=== PATIENT | female | born 1970 | race Caucasian/White ===

== ENCOUNTER 2019-09-20 14:16 | Outpatient (CLI) | payer OTHER, SELFPAY ==
--- NOTE | ~2019-09-20 | MM_ITS ---
EXAMINATION: MM screening christopher BI w alanis HISTORY: Screening mammogram, family history of breast cancer in her mother. TECHNIQUE: Craniocaudal and mediolateral oblique 3-D tomosynthesis images were obtained and synthetic 2-D images were generated. CAD analysis was submitted and interpreted. COMPARISON: 09/18/2018, 10/28/2017, 11/07/2016 BREAST PARENCHYMAL COMPOSITION: The breasts are heterogeneously dense, which may obscure small masses . FINDINGS: There is no evidence of suspicious mass, calcification, or architectural distortion to sugg est malignancy in either breast. There has been no suspicious interval change. IMPRESSION: 1. No mammographic evidence of malignancy. 2. Recommend routine screening mammography in one year. BI-RADS Category 1: Negative Reviewed, dictated and finalized at location A.
== END 2019-09-20 14:17 | disposition home or self-care (01) ==
PROVIDERS: PCP Family Medicine; Visit Provider Nurse Practitioner Obstetrics & Gynecology
DX: Z12.31 Encounter for screening mammogram for malignant neoplasm of breast (principal)
CPT/HCPCS: 77063; 77067

== ENCOUNTER 2020-09-21 14:15 | Outpatient (CLI) | payer OTHER, SELFPAY ==
--- NOTE | ~2020-09-21 | MM_ITS ---
EXAMINATION: MM screening christopher BI w alanis HISTORY: Screening mammogram, family history of breast cancer in her mother. TECHNIQUE: Craniocaudal and mediolateral oblique 3-D tomosynthesis images were obtained and synthetic 2-D images were generated. CAD analysis was submitted and interpreted. COMPARISON: 09/20/2019, 09/18/2018, 10/28/2017, 11/07/2016 BREAST PARENCHYMAL COMPOSITION: The breasts are heterogeneously dense, which may obscure small masses . FINDINGS: There is no evidence of suspicious mass, calcification, or architectural distortion to sugg est malignancy in either breast. There has been no suspicious interval change. IMPRESSION: 1. No mammographic evidence of malignancy. 2. Recommend routine screening mammography in one year. BI-RADS Category 1: Negative Reviewed, dictated and finalized at location A.
== END 2020-09-21 14:16 | disposition home or self-care (01) ==
LOC: ANHIMG 14:17
PROVIDERS: PCP Family Medicine; Visit Provider Nurse Practitioner Obstetrics & Gynecology
DX: Z12.31 Encounter for screening mammogram for malignant neoplasm of breast (principal)
CPT/HCPCS: 77063; 77067

== ENCOUNTER 2021-10-19 08:21 | Outpatient (CLI) | payer OTHER, SELFPAY ==
--- NOTE | ~2021-10-19 | MM_ITS ---
EXAMINATION: MM screening christopher BI w alanis HISTORY: Screening mammogram, family history of breast cancer in her mother. TECHNIQUE: Craniocaudal and mediolateral oblique 3-D tomosynthesis images were obtained and synthetic 2-D images were generated. CAD analysis was submitted and interpreted. COMPARISON: 09/21/2020, 09/20/2019, 09/18/2018 BREAST PARENCHYMAL COMPOSITION: The breasts are heterogeneously dense, which may obscure small masses . FINDINGS: RIGHT BREAST: There is no suspicious mass, calcification, or architectural distortion to suggest eve gnancy. There has been no significant interval change. LEFT BREAST: There is a possible mass in the middle third of the slightly inner breast. IMPRESSION: 1. Possible left breast mass. 2. Additional mammographic views and possible breast ultrasound are recommended. BI-RADS Category 0: Incomplete: Needs additional imaging evaluation. Reviewed, dictated and finalized at location A. IMPRESSION: 1. Possible left breast mass. 2. Additional mammographic views and possible breast ultrasound are recommended . BI-RADS Category 0: Incomplete: Needs additional imaging evaluation.
== END 2021-10-19 08:22 | disposition home or self-care (01) ==
LOC: ANHIMG 08:25
PROVIDERS: PCP Family Medicine; Visit Provider Nurse Practitioner Obstetrics & Gynecology
DX: Z12.31 Encounter for screening mammogram for malignant neoplasm of breast (principal); R92.8 Other abnormal and inconclusive findings on diagnostic imaging of breast
CPT/HCPCS: 77063; 77067

== ENCOUNTER 2021-11-02 12:48 | Outpatient (CLI) | payer OTHER, SELFPAY ==
--- NOTE | ~2021-11-02 | MM_ITS ---
EXAMINATION: MM diagnostic christopher LT w alanis HISTORY: Possible left breast mass in middle third of slightly inner breast reported on 10/19/2021 scr eening mammogram TECHNIQUE: Additional full field ML and spot ML, MLO and CC 3-D tomosynthesis images of the left albert st were performed and synthetic 2-D images were generated. Rolled medial and rolled lateral craniocau marla views of left breast. CAD analysis was submitted and interpreted. COMPARISON: 10/19/2021 bilateral screening mammogram FINDINGS: No suspicious mass or architectural distortion, malignant calcifications, skin thickening o r retraction. The suggested breast mass on the craniocaudal view of 10/20/1999 22,022 is not confirmed on coned comp ression CC view or rolled medial or lateral CC views or other images. IMPRESSION: 1. No mammographic evidence of malignancy 2. Routine mammographic screening is recommended BI-RADS Category 1: Negative Reviewed, dictated and finalized at location B.
== END 2021-11-02 12:49 | disposition home or self-care (01) ==
LOC: ANHIMG 12:49
PROVIDERS: PCP Family Medicine; Visit Provider Nurse Practitioner Obstetrics & Gynecology
DX: R92.8 Other abnormal and inconclusive findings on diagnostic imaging of breast (principal)
CPT/HCPCS: 77061; 77065; G0279

== ENCOUNTER 2022-11-12 08:32 | Outpatient (CLI) | payer OTHER, SELFPAY ==
--- NOTE | ~2022-11-12 | MM_ITS ---
EXAMINATION: MM screening christopher BI w alanis HISTORY: Screening mammogram, family history of breast cancer in her mother. TECHNIQUE: Craniocaudal and mediolateral oblique 3-D tomosynthesis images were obtained and synthetic 2-D images were generated. CAD analysis was submitted and interpreted. COMPARISON: 11/02/2021, 10/19/2021, 09/21/2020, 09/20/2019 BREAST PARENCHYMAL COMPOSITION: The breasts are heterogeneously dense, which may obscure small masses . FINDINGS: No suspicious mass, calcification, or architectural distortion are identified in either estrellita ast to suggest malignancy. There has been no suspicious interval change. IMPRESSION: 1. No mammographic evidence of malignancy. 2. Recommend routine screening mammography in one year. BI-RADS Category 1: Negative Reviewed, dictated and finalized at location A.
== END 2022-11-12 08:33 | disposition home or self-care (01) ==
LOC: ANHIMG 08:33
PROVIDERS: PCP Family Medicine; Visit Provider Nurse Practitioner Obstetrics & Gynecology
DX: Z12.31 Encounter for screening mammogram for malignant neoplasm of breast (principal)
CPT/HCPCS: 77063; 77067

== ENCOUNTER 2023-05-27 06:56 | Emergency (ER) | payer OTHER, SELFPAY ==
[2023-05-27 07:00] VITALS: BP 144/91; PULSE 98; RESP 14; TEMP 36.3; O2SAT 98
--- NOTE | 2023-05-27 07:49 | PC.NURSE ---
pt LWBS, Feeling better, will go somewhere else
== END 2023-05-27 08:10 | disposition left against medical advice (07) ==
LOC: ANHED 07:54
PROVIDERS: PCP Family Medicine
DX: R10.9 Unspecified abdominal pain (principal)
CPT/HCPCS: 99199

== ENCOUNTER 2023-05-27 08:14 | Emergency (ER) | payer OTHER, SELFPAY ==
[2023-05-27 08:22] VITALS: BP 135/87; PULSE 89; RESP 16; TEMP 36.8; O2SAT 98
--- NOTE | 2023-05-27 09:14 | ED.GENADULT ---
HPI - General Adult General Chief complaint: Nausea/Vomiting/Diarrhea Stated complaint: Diarrhea, Food Poisoning Source: patient, RN notes reviewed and old records reviewed Mode of arrival: ambulatory Limitations: no limitations History of Present Illness HPI narrative: 52-year-old female presents to [facility] with complaints lower abdominal cramping, diarrhea, nausea, lightheadedness, and pink mucus in stool this started yesterday after eating out. Patient worried she may have gotten food poisoning. Patient denies any other symptoms. Related Data Home Medications Medication Instructions Recorded Confirmed dalfampridine 10 mg 10 mg PO Q12H 11/26/22 05/27/23 tablet,extended release,12 hr (Ampyra) ocrelizumab 30 mg/mL intravenous 300 mg IV [id number] 11/26/22 05/27/23 solution (Ocrevus) Allergies Allergy/AdvReac Type Severity Reaction Status Date / Time codeine Allergy Unknown syncopal Verified 05/27/23 08:24 episode Review of Systems Constitutional: Constitutional: Reports no additional constitutional complaints, Denies body ache(s), Denies chills, Denies fatigue, Denies fever(s) and Denies headache(s) Eyes: Eyes: Reports no additional eye complaints and Denies blurry vision ENT: Reports system reviewed and no additional complaints, except as documented, Denies vertigo, Reports dizziness, Denies ear discharge, Denies otalgia, Denies facial pain, Denies headache(s), Denies nasal congestion, Denies nasal discharge, Denies sinus pain, Denies sinus pressure and Denies sore throat Cardiovascular: Cardiovascular: Reports no additional cardiovascular complaints, Denies chest pain, Denies chest pain at rest, Denies rapid heart rate and Denies dyspnea Respiratory: Respiratory: Reports no additional respiratory complaints, Denies chest congestion, Denies cough, Denies pain on inspiration, Denies pain with cough and Denies dyspnea Gastrointestinal: Gastrointestinal: Reports abdominal pain, Reports diarrhea, Reports nausea and Denies vomiting Integumentary/Breasts: Skin/Breast: Denies rash Neurologic: Reports system reviewed and no additional complaints, except as documented, Denies vertigo, Denies dizziness and Denies headache(s) Endocrine: Endocrine: Denies fatigue [facility] Past Medical History Medical History BMI 25.0-25.9,adult Multiple sclerosis Family History Family History Father Heart disease History of open heart surgery Hypertension Mother Breast cancer Memory change Sibling No problems noted. 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 There is no relevant family history pertinent to the patient complaint. Exam Const: General: cooperative, healthy appearing, no acute distress and well nourished Nutritional Appearance: well nourished Orientation/consciousness: patient oriented x3 Limitations: no limitations HENMT: Head: normal to inspection and normocephalic Face/Nose/Sinus: normal facial exam Face and sinus: normal facial exam Mouth: Yes Normal oral and palatal mucosa present, Yes oropharynx normal and Yes moist mucous membranes Throat: posterior oropharynx normal, tonsils normal, uvula midline and no uvular edema Eyes: General: appearance normal, both eyes and all related structures Sclera: sclerae normal Pupils: Equal, round and reactive pupi
== END 2023-05-27 09:30 | disposition home or self-care (01) ==
PROVIDERS: Emergency Provider Registered Nurse; PCP Family Medicine
DX: K52.9 Noninfective gastroenteritis and colitis, unspecified (principal); G35 Multiple sclerosis
CPT/HCPCS: 99213; G0463

== ENCOUNTER 2023-10-27 12:07 | Outpatient (CLI) | payer OTHER, SELFPAY ==
--- NOTE | ~2023-10-27 | DEXA_ITS ---
Bone Density Report Name: CHAVA HUERTA Age: 53 Sex: Female Ethnicity: White Date of : 1970 Indication: postmenopausal; screening for osteoporosis; history of glucocorticoids; hysterectomy; Referring Provider: JULIANNA, CATIE Resendiz Study: Bone densitometry was performed. Exam Date: October 27, 2023 Accession number: [id number] Bone Density: Region BMD T-score Z-score Classification AP Spine(L1-L4) 0.924 -1.1 0.0 Osteopenia Femoral Neck (Left) 0.638 -1.9 -0.8 Osteopenia Total Hip (Left) 0.835 -0.9 -0.2 Normal Femoral Neck (Right) 0.599 -2.3 -1.2 Osteopenia Total Hip (Right) 0.737 -1.7 -1.0 Osteopenia Total Hip Mean 0.786 -1.3 -0.6 Osteopenia World Health Organization criteria for BMD impression classify patients as: Normal (T-score at or above -1.0), Osteopenia (T-score between -1.0 and -2.5), or Osteoporosis (T-score at or below -2.5). 10-year Fracture Risk(1): Major Osteoporotic Fracture 14% Hip Fracture 2.3% Reported Risk Factors: [place] (), Neck BMD=0.599, BMI=26.4, glucocorticoids (1) FRAX(R) Version 3.08. Fracture probability calculated for an untreated patient. Fracture probability may be lower if the patient has received treatment. Clinical Information Provided by Patient: Has taken Glucocorticoids Has used the following medications: Vitamin D Has the following medical conditions: Hysterectomy Patient maximum height was 64.0 Menopause Age: 37 Drinks caffeinated beverages Onset of menses at age 9 Number of children 0 Impression: The patient has low bone mass, based on the Right Femoral Neck T-score. The patient has an estimated ten-year risk of hip fracture of 2.3% and an estimated ten-year risk of major fracture of 14%, based on the WHO FRAX algorithm. The patient has risk factors, including: history of glucocorticoid therapy. Discussion: BONE DENSITY IS LOW AT ONE OR MORE SKELETAL SITES. This patient's lowest T-score is low at one or more skeletal sites. It meets the World Health Organization's (WHO) criteria for ?low bone mass? (T-score between -1.0 and -2.5). The patient's 10-year risk of fracture as calculated by FRAX is less than the threshold where pharmacological therapy is recommended by the National Osteoporosis Foundation (NOF). However, all treatment decisions require clinical judgment and consideration of individual patient factors, including patient preferences, comorbidities, previous drug use, risk factors not captured in the FRAX model (e.g., frailty, falls, vitamin D deficiency, increased bone turnover, interval significant decline in bone density) and possible under or overestimation of fracture risk by FRAX. The patient should follow a healthful lifestyle (good nutrition with adequate calcium and vitamin D, and appropriate weight-bearing exerci
== END 2023-10-27 12:08 | disposition home or self-care (01) ==
PROVIDERS: PCP Family Medicine; Visit Provider Nurse Practitioner
DX: Z13.820 Encounter for screening for osteoporosis (principal); Z78.0 Asymptomatic menopausal state; M85.852 Other specified disorders of bone density and structure, left thigh; M85.851 Other specified disorders of bone density and structure, right thigh; M85.88 Other specified disorders of bone density and structure, other site
CPT/HCPCS: 77080

== ENCOUNTER 2023-12-04 16:22 | Outpatient (CLI) | payer OTHER, SELFPAY ==
--- NOTE | ~2023-12-04 | MM_ITS ---
EXAMINATION: MM screening christopher BI w alanis HISTORY: Screening TECHNIQUE: Craniocaudal and mediolateral oblique 3-D tomosynthesis images were obtained and synthetic 2-D images were generated. CAD analysis was submitted and interpreted. COMPARISON: Comparison to multiple prior studies sequentially, with oldest reviewed study dated 09/18. BREAST PARENCHYMAL COMPOSITION: Not dense: There are scattered areas of fibroglandular density... FINDINGS: There is no evidence of suspicious mass, calcification, or architectural distortion to sugg est malignancy in either breast. There has been no suspicious interval change. IMPRESSION: 1. No mammographic evidence of malignancy. 2. Recommend routine screening mammography in one year. BI-RADS Category 1: Negative Reviewed, dictated and finalized at location B.
== END 2023-12-04 16:23 | disposition home or self-care (01) ==
PROVIDERS: PCP Family Medicine; Visit Provider Nurse Practitioner Obstetrics & Gynecology
DX: Z12.31 Encounter for screening mammogram for malignant neoplasm of breast (principal)
CPT/HCPCS: 77063; 77067

== ENCOUNTER 2024-05-11 12:39 | Emergency (ER) | payer OTHER, SELFPAY ==
--- OUTSIDE RECORDS SUMMARY | 2024-05-11 12:42 | XMS_ITS | Clinical Summary ---
Author Organization [facility] Address [address] [place] [address] Phone Care Team Providers Care Import Clerk Name Role Phone Jose Alberto Lima MD Primary Care Provider [phone] Allergies Active Allergy Reactions Criticality Noted Date Comments Codeine Unknown 09/29/2012 Black out, pass out Medications Fish Oil-[place]-3 Fatty Acids (FISH OIL OMEGA 3-6-9) 300-1,000 mg Oral CpDR Take by mouth. Active MULTIVITAMIN ORAL Take by mouth. Active GLUCOSAMINE HCL/CHONDR PALMER A NA (OSTEO BI-FLEX ORAL) Take by mouth. 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 Family History Medical History Relation Name Comments Heart Disease Father High Cholesterol Father Hypertension Father Colon Cancer Neg Hx Relation Name Status Comments Father Social History Tobacco Use Types Packs/Day Years Used Date Smoking Tobacco: Never Alcohol Use Standard Drinks/Week Comments Yes 0 (1 standard drink = 0.6 oz pur e alcohol) occas glass of wine Comments Unknown Sex and Gender Information Value Date Recorded Sex Assigned at Not on file Legal Sex Female 2:57 PM CDT Gender Identity Not on file Sexual Orientation Not on file Occupation Industry Job Start Date Job End Date Not on file Not on file Not on file Not on file Last Filed Vital Signs Vital Sign Reading Time Taken Comments Blood Pressure 132/76 12/14/2013 3:19 PM CDT lef t wrist Pulse 69 12/14/2013 3:19 PM CDT Temperature 37.1 ??C (98.8 ??F) 10/07/2012 4:35 PM CD T Respiratory Rate 18 12/14/2013 3:19 PM CDT Oxygen Saturation 100% 10/07/2012 4:35 PM CDT Inhaled Oxygen Concentration - - Weight 71.7 kg (158 lb) 12/14/2013 3:19 PM CDT Height 162.6 cm (5' 4 ) 12/14/2013 3:19 PM CDT Body Mass Index 27.12 12/14/2013 3:19 PM CDT Plan of Treatment Health Maintenance Due Date Last Done Comments HEPATITIS B VACCINES (1 of 3 - 19+ 3-dose series) 07/05/1987 CERVICAL CANCER SCREENING 1998 BREAST CANCER SCREENING 2008 FIT-DNA Q 3 years 2013 FIT/FOBT Q 1 year 2013 Flex Sig/CT Colonography Q 5 years 2013 INFLUENZA VACCINE (#1) 2023 01/15/2022 COVID-19 Vaccine (3 - 2023-2 5 season) 2023 06/16/2020, 05/19/2020 DTAP/TDAP/TD VACCINES (2 - T d or Tdap) 10/13/2027 10/12/2017 COLORECTAL SCREENING 10/06/2028 10/06/2018, 10/06/2012 Colorectal Cancer Screening 10/06/2028 ZOSTER VACCINE Completed 02/12/2019, 08/03/2018 PNEUMOCOCCAL VACCINE 0-64 YEARS Aged Out No longer eligible b ased on patient's age to complete this topic Insurance BLUE ACCESS/TRUE BLUE PPO [facility] [id number] Advance Directives For more information, please contact: [phone] * Full Code (Latest Code Status on File) Date Activated Date Inactivated Comments 10/07/2012 1:24 PM 10/07/2012 7:21 PM * Full Code Date Activated Date Inactivated Comments 10/07/2012 11:58 AM 10/07/2012 1:24 PM * Full Code Date Activated Date Inactivated Comments 10/06/2012 8:21 AM 10/06/2012 12:54 PM Care Teams Import Clerk Relationship Specialty Start Date End Date Jose Alberto Lima MD [address] [place] [address] PCP - General Family Practice 09/29/12
--- OUTSIDE RECORDS SUMMARY | 2024-05-11 12:43 | XMS_ITS | Data Portability ---
Author Organization [facility] Address [address] [place] [address] Care Team Providers Care Catering Staff Member Name Role Phone SON JAIN Primary Care Provider Assessment Encounter Date Assessment Date Assessment LastModified by Organization Details LastModified Time 09/20/2019 09/20/2019 Annual gynecological exam performed. Patient will come back in a year unless there are new symptoms. [email or web address] Not available 09/20/2019 11:02:03 09/21/2020 09/21/2020 Annual gynecological exam performed. Patient will come back in a year unless there are new symptoms. Not available 09/20/2020 14:15:43 09/24/2021 09/24/2021 Annual gynecological exam performed. Patient will come back in a year unless there are new symptoms. Not available 09/24/2021 11:06:26 09/27/2022 09/27/2022 Annual gynecological exam performed. Patient will come back in a year unless there are new symptoms. Not available 09/27/2022 09:05:03 10/03/2023 10/03/2023 Annual gynecological exam performed. Patient will come back in a year unless there are new symptoms. [email or web address] Not available 10/03/2023 09:23:15 Plan of Treatment Reminders Order Date Submit Date Provider Last Modified By Organization Details Last Modified Time Details Appointments None recorded. Lab CMP, serum or plasma 2019 020 [facility], [address], [place], [address], 0 10:56:37 CBC 2019 020 [facility], [address], [address], 0 10:56:36 lipid panel, serum 2019 020 [facility], [address], [address], 0 10:56:36 TSH, serum or plasma 2019 020 [facility], [address], [address], 0 10:56:37 vitamin D, 25-hydroxy, total, serum 2019 020 [facility], [address], [address], 0 10:56:36 CMP, serum or plasma 2021 022 [facility], [address], [place], [address], 2 16:56:10 CBC w/ auto diff 2021 022 [facility], [address], [place], [address], 2 16:56:10 HbA1c (hemoglobin A1c), blood 2021 022 [facility], [address], [place], [address], 2 16:56:10 vitamin D, 1,25-dihydr oxy, serum 2021 022 [facility], [address], [place], [address], 2 16:56:11 TSH, serum or plasma 2021 022 [facility], [address], [place], [address], 2 16:56:10 lipid panel, serum 2021 022 [facility], [address], [place], [address], 2 16:56:10 CMP, serum or plasma 2022 023 [facility], [address], [place], [address], 3 15:20:34 CBC w/ auto diff 2022 023 [facility], [address], [place], [address], 3 15:20:35 TSH, serum or plasma 2022 023 [facility], [address], [place], [address], 3 15:20:35 HbA1c (hemoglobin A1c), blood 2022 023 [facility], [address], [place], [address], 3 05:01:08 lipid panel, serum 2022 023 [facility], [address], [place], [address], 3 05:01:08 CBC w/ auto diff 2023 024 [facility], [address], [address], 5 05:01:40 lipid panel, serum 2023 024 [facility], [facility] [address], [address], 4 10:16:47 HbA1c (hemoglobin A1c), blood 2023 024 [facility], [facility] [address], [address], 4 10:16:48 TSH, serum or plasma 2023 024 [facility], [facility] [address], [address], 5 05:01:40 vitamin D, 25-hydroxy, total, serum 2023 024 [facility], [facility] [address], [address], 4 10:16:48 CMP, serum or plasma 2023 024 [facility], [facility] [address], [address], 4 10:16:48 Referral None recorded. Procedures None recorded. Surgeries None recorded. Imaging MAMMO, screening, bilateral [address] [facility], [address], [place], [address], 3 13:52:18 DEXA, axial skeleton + vertebral fracture assessment 2023 024 [facility], [address], [place], [address], 4 18:23:00 MAMMO, screening, digital, bilateral 2023 024 [facility], [address], [place], [address], 5 05:01:03 Medication Orders Premarin 0.625 mg/gram vaginal cream 2020 021 [id number], [address] [facility], [place], [place], [id number], 2 11:09:00 Patient TargetsNo targets recorded. Patient InstructionsNo instructions recorded. Reason for Referral None Reported. Results Created Date Observation Date Name Description Value Unit Range Abnormal Flag Note LastModifiedBy Organization Detail LastModifiedTime 09/20/19 20 09/20/2019 MAMMO , scree jesus, bilat eral No observ ation record ed. [address] [facility], [place], [address], 10/04/2019 18:22:23 10/20/19 22 10/19/2021 MAMMO , scree jesus, bilat eral No observ ation record ed. [address] [address], [place], [address], 10/24/2021 23:31:23 11/03/19 22 11/02/2021 imagi ng/di agnos tic resul t No observ ation record ed. [address] [address], [place], [address], 11/06/2021 21:05:24 10/28/19 24 10/27/2023 DEXA, axial skele ton + verte bral fract ure asses sment No observ ation record ed. [address] [address], [place], [address], 10/31/2023 19:53:37 12/04/19 24 12/04/2023 MAMMO , scree jesus, bilat eral No observ ation record ed. [address] [address], [place], [address], 12/08/2023 14:03:10 Result Notes None recorded. Problems Name Problem SNOMED Code Status Onset Date Resolution Date Notes Provider Name and Address Organization Details Recorded Time Screening for malignant neoplasm of rectum Completed 201209/20/2020 Screening for malignant neoplasms of the rectum;Re corded Elsewhere : No Locati on: [facility] So urce: EHR Chron ic: N Practic e ID: 0001 Bill able Time: 08:30:00 AM Sofi [facility] 14:17:58 Specializ ed medical examinati on Completed 201209/20/2020 Gynecolog ical Examinati on;Record ed Elsewhere : No Locati on: [facility] So urce: EHR Chron ic: N Practic e ID: 0001 Bill able Time: 08:30:00 AM Sofi [facility] 14:18:04 Carbuncle of skin and/or subcutane ous tissue [id number] Completed 201209/20/2020 Carbuncle and furuncle of unspecifi ed site;Vince rded Elsewhere : No Locati on: [facility] So urce: EHR Chron ic: N Practic e ID: 0001 Bill able Time: 01:45:00 PM Sofi Kapoor [facility] 14:17:49 Dyspareun ia [id number] Completed 201309/20/2020 Dyspareun ia;Record ed Elsewhere : No Locati on: [facility] So urce: EHR Chron ic: N Practic e ID: 0001 Bill able Time: 04:15:00 PM Sofi [facility] 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 [address] 14:18:[address] Concept Completed 201509/20/2020 Encntr for general adult medical exam w/o abnormal findings; Recorded Elsewhere : No Locati on: [facility] So urce: EHR Chron ic: N Practic e ID: 0001 Bill able Time: 08:30:00 AM Soif Kapoor [facility] 1 14:18:00 External hemorrhoi ds [id number] Completed 201209/20/2020 External hemorrhoi ds without mention of complicat ion;Recor ded Elsewhere : No Locati on: [facility] So urce: EHR Chron ic: Y Practic e ID: 0001 Bill able Time: 08:30:00 AM Sofi Kapoor [facility] 14:17:54 Anal fissure [id number] Completed 201309/20/2020 Anal fissure;R ecorded Elsewhere : No Locati on: [facility] So urce: EHR Chron ic: N Practic e ID: 0001 Bill able Time: 08:30:00 AM Sofi Kapoor [facility] 14:17:47 Adult health examinati on Completed 201309/20/2020 ROUTINE MEDICAL EXAM;Vince rded Elsewhere : No Locati on: [facility] So urce: EHR Chron ic: N Practic e ID: 0001 Bill able Time: 08:30:00 AM Sofi Kapoor [facility] 1 14:17:45 Cyst of ovary [id number] Completed 201209/20/2020 Other and unspecifi ed ovarian cyst;Vince rded Elsewhere : No Locati on: [facility] So urce: EHR Chron ic: N Practic e ID: 0001 Bill able Time: 08:15:00 AM Sofi Kapoor [facility] 14:17:51 Screening for malignant neoplasm of cervix Completed 201209/20/2020 Screening for malignant neoplasms of the cervix;Re corded Elsewhere : No Locati on: [facility] So urce: EHR Chron ic: N Practic e ID: 0001 Bill able Time: 08:30:00 AM Sofi [facility] 14:17:55 Screening for malignant neoplasm of colon Completed 201009/20/2020 Special screening for malignant neoplasms , colon;Pra ctice ID: 0001 Sofi [facility] 14:17:57 Problem Notes None recorded. Procedures Surgical History Date Name Laterality Status Provider Name and Address Organization Details Recorded Time 10/20/19 23 Date of Last Mammogram completed Shona Jose [facility] 10/03/2023 09:26:32 09/20/19 20 completed [facility] 09/20/2020 14:19:57 10/07/19 19 completed [facility] 09/21/2020 09:48:07 10/07/19 19 Date of Last Colonoscopy completed [facility] 09/21/2020 09:48:07 09/15/19 19 Date of Last Pap Smear completed [facility] 09/20/2020 14:19:02 procedure on hand completed [facility] 09/20/2019 11:04:07 Total Hysterectomy completed [facility] 09/20/2019 11:04:12 Laparoscopy completed [facility] 09/20/2019 11:04:17 repair of anal fistula completed [facility] 09/20/2019 11:04:29 Imaging Results Imaging Date Name Status [facility]Modified by [facility] Details LastModified Time 09/20/2019 MAMMO, screening, bilateral completed [facility] [address] [place] [address] [address], [place], [address], 10/04/2019 18:22:23 10/19/2021 MAMMO, screening, bilateral completed [address], [place], [address], 10/24/2021 23:31:23 11/02/2021 imaging/diagnos tic result completed [address], [place], [address], 11/06/2021 21:05:24 10/27/2023 DEXA, axial skeleton + vertebral fracture assessment completed [address] [facility], [place], [address], 10/31/2023 19:53:37 12/04/2023 MAMMO, screening, bilateral completed [address] [facility], [place], [address], 12/08/2023 14:03:10 Procedure Notes None recorded. Medical Equipment None Reported. Allergies Allergen ID Allergen Name Allergen Category Reaction Reaction Severity Criticality Documentation Date Start Date Code Code System Note Provider Name and Address Organization Details Recorded Time 988 codeine medicatio n Not available Not available Not available 09/20/2019 2670 RxNorm La [facility] [place] [facility] 0 11:02:32 Medications Name Sig Start Date Stop Date Status Note LastModified by Organization Details LastModified Time amoxicill in 500 mg capsule TAKE 2 CAPSULES BY MOUTH EVERY DAY FOR 10 DAYS 09/20 completed Not Available Not Available Not Available azelastin e 0.05 % eye drops INSTILL 1 DROP INTO BOTH EYES TWICE A DAY NEEDED FOR EYE IRRITATI ON 10/02 completed Not Available Not Available Not Available prednison e 10 mg tablet 10/02 completed Not Available Not Available Not Available clobetaso l 0.05 % topical cream apply by topical route 2 times every day a thin layer to the affected area(s) 11/03 completed Prescrib ed Elsewher e: No Locat ion: Genaro hayden [facility] odify By: jony Hayden ncounter DateTime : 11/03/19 14 08:30:00 AM Not Available Not Available Not Available amoxicill in 500 mg tablet TAKE 1 TABLET BY MOUTH EVERY 12 HOURS FOR 7 DAYS 09/20 completed Not Available Not Available Not Available Metrogel Vaginal 0.75 % (37.5 mg/5 gram) insert 1 applicat orful (37.5MG) by vaginal route every day at bedtime 11/02 completed Prescrib ed Elsewher e: No Locat ion: [facility] By: catalino cerda DateTime : 11/05/19 13 08:31:42 AM Not Available Not Available Not Available dicyclomi ne 20 mg tablet TAKE 1 TABLET BY MOUTH THREE TIMES DAILY NEEDED FOR ABDOMINA L PAIN 10/02 completed Not Available Not Available Not Available benzonata te 100 mg capsule TAKE 1 CAPSULE BY MOUTH THREE TIMES DAILY FOR 10 DAYS NEEDED FOR COUGH 09/27 completed Not Available Not Available Not Available Cipro 500 mg tablet take 1 tablet (500MG) by oral route every 12 hours 10/28 completed Prescrib ed Elsewher e: No Locat ion: Ayla jackelyn [facility]ify By: lakisha vargasuntmani DateTime : 08/25/19 13 04:15:02 PM Not Available Not Available Not Available Glucosami ne 500 mg tablet 11/03 completed Prescrib ed Elsewher e: Yes Loca tion: Genaro hayden [facility]ify By: jony Hayden ncounter DateTime : 10/26/19 12 11:11:10 AM Not Available Not Available Not Available Anusol-HC 25 mg rectal supposito ry insert 1 supposit ory (25MG) by rectal route 2 times every day for 2 weeks 07/13 completed Prescrib ed Elsewher e: No Locat ion: Genaro hayden [facility] odify By: cmedical Encount er DateTime : 07/01/19 13 09:46:01 AM Not Available Not Available Not Available Vitamin D2 1,250 mcg (50,000 unit) capsule take 1 capsule by oral route every week 09/27 completed Prescrib ed Elsewher e: Yes Loca tion: Genaro hayden [facility]ify By: meravt pena DateTime : 09/15/19 19 08:30:00 AM Not Available Not Available Not Available ondansetr on 4 mg disintegr ating tablet DISSOLVE 1 TABLET ON THE TONGUE EVERY 6 HOURS NEEDED FOR NAUSEA OR VOMITING 10/02 completed Not Available Not Available Not Available neomycin 3.5 mg-polymy mindy 10,000 unit-hydr ocort 10 mg/mL eye drop,susp INSTILL 1 DROP IN AFFECTED EYE(S) FOUR TIMES DAILY FOR UP TO 5 DAYS 10/02 completed Not Available Not Available Not Available diazepam 5 mg tablet TAKE 1 TABLET BY MOUTH 1 HOUR BEFORE MRI. MAY REPEAT 30 MINUTES BEFORE EXAM 10/02 completed Not Available Not Available Not Available Bactrim DS 800 mg-160 mg tablet take 1 tablet by oral route every 12 hours 10/28 completed Prescrib ed Elsewher e: No Locat ion: [facility] odify By: lakisha vargasuntmani DateTime : 09/02/19 13 11:11:35 AM Not Available Not Available Not Available Vitamins and Minerals tablet active Prescrib ed Elsewher e: Yes Loca tion: [facility]ify By: catalino cerda DateTime : 10/28/19 12 01:00:00 PM Not Available Not Available Not Available Premarin 0.625 mg/gram vaginal cream insert (1G) by vaginal route daily x 14 days; then, use twice weekly for maintena nce. 09/24 completed Not Available Not Available Not Available Fish Oil 09/20 completed Not Available Not Available Not Available Metamucil active Not Available Not Nathalia ilable Not Available Vitamins and Minerals 09/20 completed Not Available Not Available Not Available Keflex 750 mg capsule take 1 capsule (750MG) by oral route 2 times every day 10/28 completed Prescrib ed Elsewher e: No Locat ion: [facility] odify By: lakisha pena DateTime : 08/05/19 13 05:00:00 PM Not Available Not Available Not Available dalfampri dine ER 10 mg tablet,ex tended release,1 2 hr take 1 tablet by oral route 2 times every day 10/02 completed Not Available Not Available Not Available Ampyra 09/20 completed Not Available Not Available Not Available Probiotic active Not Available Not Nathalia ilable Not Available Fish Oil 100 mg-160 mg-1,000 mg capsule active Prescrib ed Elsewher e: Yes Loca tion: [facility] odify By: catalino cerda DateTime : 10/28/19 12 01:00:00 PM Not Available Not Available Not Available Vitamin D2 09/24 completed Not Available Not Available Not Available Anusol-HC 2.5 % topical cream with perineal applicato r apply by topical route 2 times every day to the affected area(s) 08/04 completed Prescrib ed Elsewher e: No Locat ion: [facility] odify By: catalino cerda DateTime : 06/26/19 13 08:30:00 AM Not Available Not Available Not Available Ocrevus 30 mg/mL intraveno us solution infuse by intraven ous route every 6 months over at least (maximum infusion rate 200 mL/hr) active Prescrib ed Elsewher e: Yes Loca tion: [facility] odify By: joshua Hayden ncounter DateTime : 10/29/19 18 08:30:00 AM Not Available Not Available Not Available Ocrevus 09/20 completed Not Available Not Available Not Available BinaxNOW COVID-19 Ag Self Test kit Use as Directed on the Package 09/27 completed Not Available Not Available Not Available Vitals Date Recorded Body height Body mass index (BMI) Body weight Provider Name and Address Organization Details Last Updated DateTime 09/21/2020 162.56 cm 26.4 kg/m2 13566.22 tressa Kapoor [place] - [place] [facility] 09/21/2020 09:47:49 Date Recorded Systolic blood pressure Diastolic blood pressure Provider Name and Address Organization Details Last Updated DateTime 09/21/2020 132 mm[Hg] 78 mm[Hg] Lexi Friederich, [facility] [address], [place], [address], [facility] 09/21/2020 10:10:55 Date Recorded Body height Body mass index (BMI) Body weight Systolic blood pressure Diastolic blood pressure Provider Name and Address Organization Details Last Updated DateTime 09/20/2019 1950.72 cm 0.2 kg/m2 21157.45 g 127 mm[Hg] 78 mm[Hg] La Lamb [facility] 11:07:53 Date Recorded Body height Body mass index (BMI) Body weight Provider Name and Address Organization Details Last Updated DateTime 09/24/2021 160.02 cm 26.2 kg/m2 06092.67 g Sofi Kapoor [facility] 09/24/2021 11:08:07 Date Recorded Systolic blood pressure Diastolic blood pressure Provider Name and Address Organization Details Last Updated DateTime 09/24/2021 122 mm[Hg] 74 mm[Hg] Lexi Krishnamurthy, [facility] [address], [place], [address], [facility] 09/24/2021 11:26:08 Date Recorded Body height Body mass index (BMI) Body weight Provider Name and Address Organization Details Last Updated DateTime 09/27/2022 160.02 cm 27.3 kg/m2 78393.22 g Symone Eugene [facility] 09/27/2022 09:05:20 Date Recorded Systolic blood pressure Diastolic blood pressure Provider Name and Address Organization Details Last Updated DateTime 09/27/2022 122 mm[Hg] 80 mm[Hg] Lexi Krishnamur[facility] [address], [place], [address], [facility] 09/27/2022 09:27:03 Date Recorded Body height Body mass index (BMI) Body weight Systolic blood pressure Diastolic blood pressure Provider Name and Address Organization Details Last Updated DateTime 10/03/2023 160.02 cm 26.7 kg/m2 08013.45 g 146 mm[Hg] 82 mm[Hg] Shona Jose [facility] 09:25:42 Social History Question Answer Notes LastModified by Organizat ion Details LastModified Time Tobacco Smoking Status Never Smoker Symone Eugene swati, [facility] 09/27/2022 09:05:39 What Is Your Level Of Alcohol Consumption? Occasional Information not available 09/21/2020 Are You Blind Or Do You Have Difficulty Seeing? No Information not available 09/24/2021 What Is Your Level Of Caffeine Consumption? Moderate Information not available 09/21/2020 How Much Tobacco Do You Chew? None Information not available 09/27/2022 In The 14 Days Before Symptom Onset, Have You Had Close Contact With A Laboratory-confir med COVID-19 While That Case Was Ill? No Information not available 09/27/2022 In The 14 Days Before Symptom Onset, Have You Had Close Contact With A Person Who Is Under Investigation For COVID-19 While That Person Was Ill? No Information not available 09/27/2022 Have You Been To An Area Known To Be High Risk For COVID-19? No Information not available 09/27/2022 Are You Deaf Or Do You Have Serious Difficulty Hearing? No Information not available 09/24/2021 What Type Of Diet Are You Following? REGULAR Information not available 09/21/2020 What Is The Highest Grade Or Level Of School You Have Completed Or The Highest Degree You Have Received? 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 No Information not available 09/21/2020 Do You Use Your Seat Belt Or Car Seat Routinely? Yes Information not available 09/24/2021 Do You Have Smoke And Carbon Monoxide Detectors In Your Home? Yes Information not available 09/24/2021 How Much Tobacco Do You Smoke? No Information not available 09/21/2020 Do You Feel Stressed (tense, Restless, Nervous, Or Anxious, Or Unable To Sleep At Night)? [id number] Information not available 09/21/2020 Do You Use Any Illicit Or Recreational Drugs? No Information not available 09/21/2020 Do You Use Sunscreen Routinely? Yes Information not available 09/24/2021 Have You Used IV Drugs? No Information not available 09/21/2020 Sex: Unknown Functional Status Question Answer Note LastModified by Organizat ion Details LastModified Time Do you have difficulty walking or climbing stairs? No Information not available 09/27/2022 Are you able to walk? YESWOREST Information not available 09/24/2021 Are you able to care for yourself? Yes Information not available 09/27/2022 Do you have difficulty dressing or bathing? No Information not available 09/27/2022 What is your exercise level? Moderate Information not available 09/21/2020 Mental Status None recorded. Family History Relationship Description Onset Age of this Age Resolved Age Notes LastModified by Organization Details LastModified Time Mother Carcinoma in situ of breast [email or web address] Not available 2023 09:19:58 Mother Osteoporosis Not availab le 09/21/2020 09:48:00 Mother Malignant tumor of breast Not available 2020 09:48:00 Father Cerebrovascu lar accident Not available 09:48:00 Father Coronary arterioscler osis [email or web address] Not available 2023 09:19:58 Father Heart disease Not available 2020 09:48:00 Maternal Aunt Malignant tumor of breast Not available 2020 09:48:00 Paternal Aunt Malignant tumor of breast Not available 2020 09:48:00 Medical History Condition Response Other Y Blood Transfusion N Dermatologic Disorders N Gestational Diabetes N Anxiety Disorder N Autoimmune disease N Arthritis N Polyps N Infertility N Acid Reflux (GERD) N Cancer N Varicosities N Stroke N Neurologic/Epilepsy N Fibromyalgia N Headaches N Kidney Disease N Heart Problems N Kidney or Bladder Problems N Eating Disorder N Art (IVF or FET) N Hepatitis/Liver Disease N No Past Medical History N Urinary Tract Infection N Asthma N Trauma/Violence N Thrombophilias N Allergies (Food, seasonal, environmental ) N Breast Cancer N Drug/Latex Allergies/Reactions N Lung Disease N Defects or Inherited Disease N Breast Problem N Hematologic disorders N Anesthesia Complications N History of STI N Deep Vein Thrombosis N Polycystic ovary syndrome N History of abnormal pap N Endometriosis N High Cholesterol N Thyroid Problems N GI Problems N Anemia N Psychiatric Illness N Ovarian Cancer N Diabetes N Pulmonary (TB, Asthma) N Eczema N Abuse/Domestic Violence N Depression/ depression N Heart Disease N Pre-Eclampsia N Hypertension N Osteoporosis N Gynecological History Statement/Question Response Abnormal Pap N Date of Last Mammogram 10/19/2022 STIs/STDs N HPV Vaccine N 09/20/2019 Current Control Method Hysterectom y Age at First Child 1 Date of Last Colonoscopy 10/06/2018 Sexually Active? Y Menses Monthly N Age of first menstrual cycle 9 Date of Last Pap Smear 09/14/2018 Sexual Problems? Yes LMP Unknown 10/06/2018 N Obstetrics History GPAL:G 0 P 0 0 0 0 Type Value Living 0 Total 0 Past Encounters Encounter ID Performer Location Encounter Start Date Encounter Closed Date Diagnosis/Indication Diagnosis SNOMED-CT Code Diagnosis ICD10 Code Diagnosis Note [id number] Lexi Krishnamurthy [facility] [address] [address] 09/20/2019 11:00:39 09/20/2019 11:40:38 Gynecologic examination 55802881 Z01.419 Take Calcium with Vitamin D 12-1500mg daily. Do monthly self breast exams. It is advised to get annual flu shot in the fall and she could obtain at [facility] or [facility] care clinic. If you haven't received the Tdap vaccine in the last 10 years you should obtain one as well. Have mammogram yearly, bone density every 2-3 years and colonoscop y every 5-10 years depending on findings and history. Engage in daily exercise of low impact aerobic exercise 45-60 minutes 4-5 times weekly. Avoid tobacco and illicit drugs as well as using moderation with alcohol intake less than 1-2 8 oz beverages daily. This lifestyle behavior pattern will lead to less health conditions and longer life span. If BMI greater than 25 weight watchers or dietary consult advised. Questions have been answered. Patient appears to understand instructio ns, but if you have any further questions call or respond to this email Hx hyst non-cancer indication s D/C pap unless otherwise indicated. Normal Pap hx Adult heal th examination 619551708 Z00.00 [id number] Lexi Krishnamurthy [facility] [address],[place] [address] 09/21/2020 09:36:39 09/21/2020 10:17:45 Gynecologic examination 69119147 Z01.419 Take Calcium with Vitamin D 12-1500mg daily. Do monthly self breast exams. It is advised to get annual flu shot in the fall and she could obtain at [facility]. If you haven't received the Tdap vaccine in the last 10 years you should obtain one as well. Have mammogram yearly, bone density every 2-3 years and colonoscop y every 5-10 years depending on findings and history. Engage in daily exercise of low impact aerobic exercise 45-60 minutes 4-5 times weekly. Avoid tobacco and illicit drugs as well as using moderation with alcohol intake less than 1-2 8 oz beverages daily. This lifestyle behavior pattern will lead to less health conditions and longer life span. If BMI greater than 25 weight watchers or dietary consult advised. Questions have been answered. Patient appears to understand instructio ns, but if you have any further questions call or respond to this email Hx hyst non-cancer indication s D/C pap unless otherwise indicated. Normal Pap hx Mammo orderedCol on UTD PCP Dyspareunia [id number] N94 .10 Trial of topical vaginal estrogen therapy reviewed.R TO x 3mos Counseled on medication R/B's, Most common side effects, & use. All questions were answered to patient satisfacti on. Use VCG's as well. Sheet given. [id number] Lexi Krishnamurthy [facility] [address],[place] [address] 09/24/2021 10:32:56 09/24/2021 16:14:17 Gynecologic examination [id number] Z01.419 Take Calcium with Vitamin D 12-1500mg daily. Do monthly self breast exams. It is advised to get annual flu shot in the fall and she could obtain at [facility] or [facility]. If you haven't received the Tdap vaccine in the last 10 years you should obtain one as well. Have mammogram yearly, bone density every 2-3 years and colonoscop y every 5-10 years depending on findings and history. Engage in daily exercise of low impact aerobic exercise 45-60 minutes 4-5 times weekly. Avoid tobacco and illicit drugs as well as using moderation with alcohol intake less than 1-2 8 oz beverages daily. This lifestyle behavior pattern will lead to less health conditions and longer life span. If BMI greater than 25 weight watchers or dietary consult advised. Questions have been answered. Patient appears to understand instructio ns, but if you have any further questions call or respond to this email Hx hyst non-cancer indication s Pap/hpv d/c pap unless otherwise indicated per asccpMay consider one q3yrs or so since she is on an immunosupp ressive medication .STD Screen declinedGe netic Screen discussed & declinedCo andrey Screen UTD PCPDexa Screen Due age 53yoRoutin e Labs OrderedMam mo ordered Adult heal th examination 898301996 Z00.[address] gamble on intercourse [id number] N89.8 We discussed trial of imvexxy related to her risks for breast cancer based on family history & while currently on medication for her MS which also poses an increased risk of breast cancer developmen t.Her risks would be higher with both these factors for breast cancers.Wo uld HIGH need to consider genetic cancer screening if we were to consider this option in case further preventati ve care would need to be initiated. Best safest option would be crisco oil daily & with sexual activity.S he opts to stay with the least risk option at this time. [id number] Lexi Krishnamurthy , [facility] [address] [address] 09/27/2022 08:53:48 09/27/2022 10:14:45 Gynecologic examination [id number] Z01.419 Take Calcium with Vitamin D 12-1500mg daily. Do monthly self breast exams. It is advised to get annual flu shot in the fall and she could obtain at [facility] or [facility]. If you haven't received the Tdap vaccine in the last 10 years you should obtain one as well. Have mammogram yearly, bone density every 2-3 years and colonoscop y every 5-10 years depending on findings and history. Engage in daily exercise of low impact aerobic exercise 45-60 minutes 4-5 times weekly. Avoid tobacco and illicit drugs as well as using moderation with alcohol intake less than 1-2 8 oz beverages daily. This lifestyle behavior pattern will lead to less health conditions and longer life span. If BMI greater than 25 weight watchers or dietary consult advised. Questions have been answered. Patient appears to understand instructio ns, but if you have any further questions call or respond to this email Hx hyst non-cancer indication sPap/hpv d/c pap unless otherwise indicated per asccpNeg Pap HxSTD Screen declinedGe netic Screen discussed & declinedCo andrey Screen UTD PCPDexa Screen Due age 53yoRoutin e Labs OrderedMam mo ordered Screening mammography 24 641117 Z12.31 Adult heal th examination [id number] Z00.00 [id number] DOM Burns [facility] [address] [address] 10/03/2023 09:18:53 10/03/2023 10:37:07 Gynecologic examination [id number] Z01.419 WWEpaps d/c'd unless otherwise indicatedd eclined STI screenmamm ogram order givengenet ic testing discussedc olonoscopy UTDdexa order givenencou raged to est care with PCPBP precaution s reviewed Do monthly self breast exams. It is advised to get annual flu shot in the fall and she could obtain at local pharmacy. If you haven't received the Tdap vaccine in the last 10 years you should obtain one as well. Have mammogram yearly, bone density every 2-3 years and stay up to date on colon cancer screening. Engage in regular exercise. Avoid tobacco and illicit drugs. This lifestyle behavior pattern will lead to less health conditions and longer life span. If BMI greater than 25 dietary consult advised. Questions have been answered. Patient appears to understand instructio ns, but if you have any further questions call or respond to this email Screening for malignant neoplasm of breast 137273256 Z12.39 Screening for osteoporosis 320019202 Z13.820 Adult heal th examination 366669599 Z00.00 fasting labs ordered Vaginal dryness 93285838 N89.8 options reviewedop ts to continue veg based moisturize r routine (crisco/co conut oil/extra virgin olive oil to vulva BID)can trial revaree hyaluronic acid vaginal suppositor ies Health Concerns Section Related Observation LastModified by Organization Detai ls LastModified Time None Recorded Concern Status LastModified by Organization Details LastModified Time None Recorded Advance Directives Directive None Recorded Payers Encounter Date Sequence Insurance Name Policy Number Policy Nelson Covered Member ID Nelson Member ID Guarantor Name 09/20/2019 1 [facility] [id number] Jackie A Voelkel [id number] Jackie A Voelkel 09/21/2020 1 [facility] [id number] Jackie A Voelkel [id number] Jackie A Voelkel 09/24/2021 1 [facility] [id number] Jackie A Voelkel [id number] Jackie A Voelkel 09/27/2022 1 [facility] [id number] Jackie A Voelkel [id number] Jackie A Voelkel 10/03/2023 1 [facility] [id number] Jackie A Voelkel [id number] Jackie A Voelkel Notes Date Note Type Note Provider Name and Address Organization Details Recorded Time 09/20/2019 text/html Annual GYNReport ed bypatient.History:no gynecologic complaints Menstrual cycle:Normal menses Urinary symptoms:No hematuria; No incontinence Vulva:No genital lesion Vagina:Normal vaginal discharge Breast:No breast pain; No breast lump; No nipple discharge Sexual complaints:No sexual complaints; No pain during intercourse; Normal libido Menopausal Symptoms:No menopausal symptoms; Normal vaginal lubrication Psychological symptoms:No depression; No anxiety; No PMDD Preventive measures:Encourage self breast examination; Encourage regular exercise; Encourage no tobacco use; Encourage regular mammograms starting age 40; Needs to schedule mammogram; Up to date on colonoscopy screening Lexi Krishnamurthy, [facility] [address], [place], [address], [facility] 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 Post-MenopausalRepor wilian bypatient.Menopausal Symptoms:no menopausal symptoms; normal vaginal lubrication Vaginal Bleeding:history of menopause having occurred; no history of post menopausal bleeding Urinary Symptoms:no hematuria; no incontinence; no nocturia; no urinary frequency Vulva:no genital lesion; no vulvar atrophy Vagina:normal vaginal discharge; no vaginal atrophy Breast:no breast lump; no nipple discharge; no breast pain Sexual Complaints:no sexual complaints;pain during intercourse;pain during intercourse: at entry Psychological Symptoms:no depression; no anxiety Preventive Measures:encourage regular mammograms starting age 40; encourage self breast examination; encourage regular exercise; encourage no tobacco use; needs to schedule mammogram; [facility] [address], [place], [address], [facility] 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 Post-MenopausalRepor wilian bypatient.Menopausal Symptoms:no menopausal symptoms; normal vaginal lubrication Vaginal Bleeding:history of menopause having occurred; no history of post menopausal bleeding Urinary Symptoms:no hematuria; no incontinence; no nocturia; no urinary frequency Vulva:no genital lesion; no vulvar atrophy Vagina:normal vaginal discharge; no vaginal atrophy Breast:no breast lump; no nipple discharge; no breast pain Sexual Complaints:no sexual complaints Psychological Symptoms:no depression; no anxiety Preventive Measures:encourage regular mammograms starting age 40; encourage self breast examination; encourage regular exercise; encourage no tobacco use; needs to schedule mammogram; history of recent colonoscopy PADMINI Meyers [address], [place], [address], [facility] 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 Post-MenopausalRepor wilian bypatient.Menopausal Symptoms:no menopausal symptoms;inadequacy of lubrication of vaginal mucosa Vaginal Bleeding:history of menopause having occurred; no history of post menopausal bleeding Urinary Symptoms:no hematuria; no incontinence; no nocturia; no urinary frequency Vulva:no genital lesion; no vulvar atrophy Vagina:normal vaginal discharge; no vaginal atrophy Breast:no breast lump; no nipple discharge; no breast pain Sexual Complaints:no sexual complaints Psychological Symptoms:no depression; no anxiety Preventive Measures:encourage regular mammograms starting age 40; encourage self breast examination; encourage regular exerciseNotes:53yo WWEh/o hysterectomy (right ovary remains) in her 30's for non-cancerous indicationslast pap 2019 : normalmammogram : olonoscopy 2019does not have a PCP fam hx of mother with BC vaginal dryness with IC DOM Burns [address], [place], [address], [place] [facility] 10/03/2023 10:35:37 OBGyn Episode No OBEpisode recorded.
--- OUTSIDE RECORDS SUMMARY | 2024-05-11 12:43 | XMS_ITS | Referral Summary ---
Author Organization [facility] Address [address] [place] [address] Care Team Providers Care Kiln Worker Name Role Phone Jose Alberto Lima MD Primary Care Provider [phone] Source Comments [facility],non-owned Affiliates and Associated Physician Practices is amultiple site organization consisting of ambulatory clinics and hospital sitesin [place], [place], [place] and [place]. This disclosure is being madepursuant to the Care Everywhere program and may not contain all information available regarding this patient. Last updated 17.[facility] Allergies Active Allergy Reactions Criticality Noted Date Comments Codeine Other 05/20/2020 blackout Medications * Be aware that medications may not be up to date on this document. Alwaysverify current medications with the patient. Medication Sig Dispensed Refills Start Date End Date Status dalfampridine (AMPYRA) 10 MG tablet Take 10 mg by mouth every 12 hours Active Multiple Vitamins-Minerals (MULTIVITAL PO) Active [place]-3 Fatty Acids (FISH OIL) 1000 MG capsule Active Vitamins A & D (VITAMIN A & D) 8000-400 units Active Probiotic Product (PROBIOTIC-10 PO) Active Psyllium (METAMUCIL FIBER PO) Active Ocrelizumab (OCREVUS IV) Infusion Q 6 months Activ e Social History Tobacco Use Types Packs/Day Years Used Date Smoking Tobacco: Never Smokeless Tobacco: Never Tobacco Cessation:Counseling Given: Yes Sex and Gender Information Value Date Recorded Sex Assigned at Not on file Gender Identity Not on file Sexual Orientation Not on file Last Filed Vital Signs Vital Sign Reading Time Taken Comments Blood Pressure 128/80 05/20/2020 3:55 PM DEBRIDGING MACHINE OPERATOR Pulse 80 05/20/2020 3:55 PM DEBRIDGING MACHINE OPERATOR Temperature 36.8 ??C (98.2 ??F) 05/20/2020 3:55 PM CS T Respiratory Rate - - Oxygen Saturation 100% 05/20/2020 3:55 PM DEBRIDGING MACHINE OPERATOR Inhaled Oxygen Concentration - - Weight 68.9 kg (152 lb) 05/20/2020 3:55 PM DEBRIDGING MACHINE OPERATOR Height 162.6 cm (5' 4 ) 05/20/2020 3:55 PM DEBRIDGING MACHINE OPERATOR Body Mass Index 26.09 05/20/2020 3:55 PM DEBRIDGING MACHINE OPERATOR Plan of Treatment Not on file Care Teams Kiln Worker Relationship Specialty Start Date End Date Jose Alberto Lima MD [address] [place] [address] PCP - General Family Medicine 05/20/20
--- OUTSIDE RECORDS SUMMARY | 2024-05-11 12:43 | XMS_ITS | Clinical Summary ---
Author Organization [facility] Address [address] [place] [address] Care Team Providers Care Assembly Machine Offbearer Name Role Phone Jose Alberto Lima MD Primary Care Provider [phone] Source Comments [facility],non-owned Affiliates and Associated Physician Practices is amultiple site organization consisting of ambulatory clinics and hospital sitesin [place], [place]. This disclosure is being madepursuant to the Care Everywhere program and may not contain all information available regarding this patient. Last updated 17.[facility] Allergies Active Allergy Reactions Criticality Noted Date Comments Codeine Other 05/20/2020 blackout Medications * Be aware that medications may not be up to date on this document. Alwaysverify current medications with the patient. Medication Sig Dispensed Refills Start Date End Date Status dalfampridine (AMPYRA) 10 MG tablet Take 10 mg by mouth every 12 hours Active Multiple Vitamins-Minerals (MULTIVITAL PO) Active [place]-3 Fatty Acids (FISH OIL) 1000 MG capsule Active Vitamins A & D (VITAMIN A & D) 8000-400 units Active Probiotic Product (PROBIOTIC-10 PO) Active Psyllium (METAMUCIL FIBER PO) Active Ocrelizumab (OCREVUS IV) Infusion Q 6 months Activ e Family History Medical History Relation Name Comments CAD (Coronary Artery Disease) Father Hypertension Father Cancer - Breast Mother Hypertension Mother Relation Name Status Comments Father Mother Social History Tobacco Use Types Packs/Day Years Used Date Smoking Tobacco: Never Smokeless Tobacco: Never Tobacco Cessation:Counseling Given: Yes Sex and Gender Information Value Date Recorded Sex Assigned at Not on file Gender Identity Not on file Sexual Orientation Not on file Last Filed Vital Signs Vital Sign Reading Time Taken Comments Blood Pressure 128/80 05/20/2020 3:55 PM INTENSIVE CARE MEDICINE SPECIALIST Pulse 80 05/20/2020 3:55 PM INTENSIVE CARE MEDICINE SPECIALIST Temperature 36.8 ??C (98.2 ??F) 05/20/2020 3:55 PM CS T Respiratory Rate - - Oxygen Saturation 100% 05/20/2020 3:55 PM INTENSIVE CARE MEDICINE SPECIALIST Inhaled Oxygen Concentration - - Weight 68.9 kg (152 lb) 05/20/2020 3:55 PM INTENSIVE CARE MEDICINE SPECIALIST Height 162.6 cm (5' 4 ) 05/20/2020 3:55 PM INTENSIVE CARE MEDICINE SPECIALIST Body Mass Index 26.09 05/20/2020 3:55 PM INTENSIVE CARE MEDICINE SPECIALIST Plan of Treatment Health Maintenance Due Date Last Done Comments COLOGUARD (AGES 45-75) - COL ON CA SCREENING 1968 COLON MONITORING 1968 COLONOSCOPY - COLON CA SCREENING 1968 CT COLONOGRAPHY - COLON CA SCREENING 1968 Colorectal Cancer Screening 1968 FIT - COLON CA SCREENING 1968 FLEX SIG - COLON CA SCREENING 1968 LIPID TESTING 1968 MAMMOGRAM 1968 PAP SMEAR 1968 HIV SCREENING 07/05/1983 HEPATITIS C SCREENING 06/30/1986 DTAP/TDAP/TD VACCINES (1 - Tdap) 07/05/1987 HEPATITIS B VACCINE (1 of 3 - 19+ 3-dose series) 07/05/1987 PNEUMOCOCCAL VACCINE 50+ (1 of 1 - PCV) 2018 ZOSTER VACCINE (1 of 2) 2018 SCREENING FOR DIABETES 05/20/2020 COVID-19 VACCINE (1 - 2023-2 5 season) 2023 INFLUENZA VACCINE (#1) 2023 DEPRESSION SCREENING 04/07/2024 HIB VACCINE Aged Out No longer eligi ble based on patient's age to complete this topic HPV VACCINE Aged Out No longer eligi ble based on patient's age to complete this topic MENINGOCOCCAL (Group B) VACCINE Aged Out No longer eligible based on patient's age to complete this topic MENINGOCOCCAL VACCINE Aged Out No andrey danyelle eligible based on patient's age to complete this topic PNEUMOCOCCAL VACCINE Aged Out No long er eligible based on patient's age to complete this topic Care Teams Assembly Machine Offbearer Relationship Specialty Start Date End Date Jose Alberto Lima MD [address] [place] [address] PCP - General Family Medicine 05/20/20
--- OUTSIDE RECORDS SUMMARY | 2024-05-11 12:43 | XMS_ITS | Clinical Summary ---
Author Organization [facility] Address [address] [place] [address] Care Team Providers Care Wrapper Caser Name Role Phone Jose Alberto Lima MD Primary Care Provider Allergies Active Allergy Reactions Criticality Noted Date Comments Codeine Other (See comments),Syncope Reaction: Unknown, , Reaction: Syncope/Low BP, Medications fish oil-dha-epa 1,200-144-216 mg capsule 0 0 7 Active Additional Information Patient taking differently: (No dose reported), oral Daily, Reported on 04/08/2024 ocrelizumab (OCREVUS) 30 mg/mL solution Infuse 20 mL (600 mg total) into a venous catheter every 6 (six) months. 1 vial 7 Active cholecalciferol , vitamin D3, (VITAMIN D3 ORAL)Indication s:Multiple sclerosis (HCC),Vitamin D deficiency Take 8,000 Units by mouth daily Active L.acid/B.animal is,bifi,inf,andrey (5X PROBIOTIC ORAL) daily Active MULTIVITAMIN ORAL daily Active psyllium (METAMUCIL) powder as needed Active diazePAM (VALIUM) 5 mg tablet Take 1 tablet 1 hour prior to MRI, may repeat 30 mins prior to exam. 2 tablet 3 Active dalfampridine 10 mg tablet extended release 12 hrIndications:M ultiple sclerosis (HCC) Take 1 tablet (10 mg total) by mouth every 12 (twelve) hours 180 tablet 3 4 Active Active Problems Problem Noted Date Diagnosed Date Chronic constipation 07/24/2018 Assessment & Plan (04/08/2024 8:49 AM DIETETIC TECHNICIAN REGISTERED): Metamucil Probiotics Adequate water intake Assessment & Plan (10/08/2023 5:36 PM CDT): Metamucil Probiotics Adequate water intake Assessment & Plan (04/08/2023 12:34 PM DIETETIC TECHNICIAN REGISTERED): Metamucil Probiotics Adequate water intake Assessment & Plan (09/26/2022 6:59 PM CDT): Metamucil Probiotics Adequate water intake Assessment & Plan (03/29/2022 8:16 AM DIETETIC TECHNICIAN REGISTERED): Metamucil Probiotics Adequate water intake Assessment & Plan (09/30/2021 11:56 AM CDT): Metamucil Probiotics Increased water intake Assessment & Plan (03/29/2021 8:30 AM DIETETIC TECHNICIAN REGISTERED): Metamucil Probiotics Increased water intake Assessment & Plan (09/07/2020 10:07 AM CDT): Metamucil Probiotics Increased water intake Assessment & Plan (03/01/2020 10:29 AM DIETETIC TECHNICIAN REGISTERED): Metamucil Probiotics Increased water intake Assessment & Plan (09/03/2019 10:34 AM CDT): Metamucil Probiotics Increased water intake Assessment & Plan (03/03/2019 10:47 AM DIETETIC TECHNICIAN REGISTERED): Metamucil Increased water intake MiraLax not tolerated well. Assessment & Plan (07/24/2018 7:58 AM CDT): MiraLax Good water intake High risk medication use 08/01/2017 Multiple sclerosis 05/17/2014 Assessment & Plan (04/09/2024 7:25 AM DIETETIC TECHNICIAN REGISTERED): CSF 04/29/14: 8 unique OCB (0 bands serum). Scheduled for Ocrevus infusion later today. The benefits and risks of Ocrevus discussed including serious infusion reactions, serious infections including respiratory/herpetic/PML infections and potential malignancy including breast cancer. Option of switching to Briumvi in 6 months for faster infusion. The benefits and risks of Briumvi were discussed including serious infusion reactions, harm and serious infections including respiratory, herpetic and PML. Increased risk of serious complications including pneumonia and possibly if she develops COVID-19 infection discussed. Last COVID-19 vaccine fall 2023. She understands that Ocrevus may reduce the efficacy of a COVID-19 vaccine and potentially she may not be protected. Paxlovid advised if she develops COVID-19. Annual mammograms and monthly breast self exams. Decrease vitamin D3 to 5000 IU daily. Dalfampridine 10 mg twice a day Neural sleeve discussed again. Right AFO not very helpful. Continue exercise MRI brain and cervical spine February 2025 Assessment & Plan (10/08/2023 5:37 PM CDT): CSF 04/29/14: 8 unique OCB (0 bands serum). Next Ocrevus infusion today. The benefits and risks of Ocrevus discussed including serious infusion reactions, serious infections including respiratory/herpetic/PML infections and potential malignancy including breast cancer. Increased risk of serious complications including pneumonia and possibly if she develops COVID-19 infection discussed. Last COVID-19 vaccine January 09, 2023. She understands that Ocrevus may reduce the efficacy of a COVID-19 vaccine and potentially she may not be protected. Paxlovid advised if she develops COVID-19. Annual mammograms and monthly breast self exams. Kesimpta and Briumvi previously discussed. Vitamin D3 supplementation 8000 IU daily Dalfampridine 10 mg twice a day Neural sleeve discussed again. Right AFO not very helpful. Continue exercise MRI brain and cervical spine February 2025 Assessment & Plan (04/08/2023 12:34 PM DIETETIC TECHNICIAN REGISTERED): CSF 04/29/14: 8 unique OCB (0 bands serum). Next Ocrevus infusion today. The benefits and risks of Ocrevus discussed including serious infusion reactions, serious infections including respiratory/herpetic/PML infections and potential malignancy including breast cancer. Increased risk of serious complications including pneumonia and possibly if she develops COVID-19 infection discussed. Last COVID-19 vaccine January 09, 2023. She understands that Ocrevus may reduce the efficacy of a COVID-19 vaccine and potentially she may not be protected. Paxlovid advised if she develops COVID-19. Annual mammograms and monthly breast self exams. Kesimpta and Briumvi discussed. Vitamin D3 supplementation 8000 IU daily Dalfampridine 10 mg twice a day Neural sleeve reviewed again. Right AFO not very helpful. Continue exercise Assessment & Plan (09/26/2022 6:59 PM CDT): CSF 04/29/14: 8 unique OCB (0 bands serum). Next Ocrevus infusion today. The benefits and risks of Ocrevus discussed including serious infusion reactions, serious infections including respiratory/herpetic/PML infections and potential malignancy including breast cancer. Increased risk of serious complications including pneumonia and possibly if she develops COVID-19 infection discussed. She received her 5th Moderna COVID-19 vaccine January 17, 2022. She understands that Ocrevus may reduce the efficacy of a COVID-19 vaccine and potentially she may not be protected. Paxlovid advised if she develops COVID-19. Annual mammograms and monthly breast self exams. Kesimpta previous discussed. Vitamin D3 supplementation 8000 IU daily Dalfampridine 10 mg twice a day Neural sleeve discussed Right AFO not very helpful. Continue exercise MRI brain and cervical spine without contrast January [address] [facility] Assessment & Plan (03/29/2022 8:16 AM DIETETIC TECHNICIAN REGISTERED): CSF 04/29/14: 8 unique OCB (0 bands serum). Next Ocrevus infusion March 28, 2022. The benefits and risks of Ocrevus discussed including serious infusion reactions, serious infections including respiratory/herpetic/PML infections and potential malignancy including breast cancer. Increased risk of serious complications including pneumonia and possibly if develops COVID-19 infection discussed. She received her 5th Moderna COVID-19 vaccine January 17, 2022. She understands that Ocrevus may reduce the efficacy of a COVID-19 vaccine and potentially she may not be protected. Paxlovid advised if she develops COVID-19. Evusheld discussed, but will defer due to cardiovascular risks. Annual mammograms and monthly breast self exams. Kesimpta previous discussed. Vitamin D3 supplementation 8000 IU daily Dalfampridine 10 mg twice a day Right AFO not very helpful. Continue exercise MRI brain and cervical spine without contrast January 2023 Assessment & Plan (09/30/2021 11:56 AM CDT): CSF 04/29/14: 8 unique OCB (0 bands serum). Next Ocrevus infusion March 28, 2022. The benefits and risks of Ocrevus discussed including serious infusion reactions, serious infections including respiratory/herpetic/PML infections and potential malignancy including breast cancer. Increased risk of serious complications including pneumonia and possibly if develops COVID-19 infection discussed. She received her 3rd Moderna COVID-19 vaccine February 02, 2021. Another booster vaccination recommended. Both the patient and her understand that Ocrevus may reduce the efficacy of a COVID-19 vaccine and potentially she may not be protected. Paxlovid advised if she develops COVID-19. Evusheld discussed, but will defer due to cardiovascular risks. Annual mammograms and monthly breast self exams. Kesimpta previous discussed. Vitamin D3 supplementation 8000 IU daily Dalfampridine 10 mg twice a day Right AFO not very helpful. Continue exercise MRI brain and cervical spine January 2023 Assessment & Plan (03/29/2021 8:30 AM DIETETIC TECHNICIAN REGISTERED): CSF 04/29/14: 8 unique OCB (0 bands serum). Next Ocrevus infusion September 27, 2021. The benefits and risks of Ocrevus discussed including serious infusion reactions, serious infections including respiratory/herpetic/PML infections and potential malignancy including breast cancer. Increased risk of serious complications including pneumonia and possibly if develops COVID-19 infection discussed. She received her 3rd Moderna COVID-19 vaccine February 02, 2021. Both the patient and her understand that Ocrevus may reduce the efficacy of a COVID-19 vaccine and potentially she may not be protected. 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 Annual mammograms and monthly breast self exams. Kesimpta previous discussed. Vitamin D3 supplementation 8000 IU daily Dalfampridine 10 mg twice a day Right knee brace and right foot orthotic. Right AFO not very helpful. Continue exercise Assessment & Plan (09/07/2020 10:07 AM CDT): CSF 04/29/14: 8 unique OCB (0 bands serum). Next Ocrevus infusion September 27, 2020. The benefits and risks of Ocrevus discussed including serious infusion reactions, serious infections including respiratory/herpetic/PML infections and potential malignancy including breast cancer. Increased susceptibility to COVID-19 and risk of serious complications if develops coronavirus infection (COVID-19) discussed including pneumonia and possible reviewed. She received her 2nd Moderna COVID-19 vaccine on June 16, 2020. Both the patient and her understand that Ocrevus may reduce the efficacy of a COVID-19 vaccine and potentially she may not be protected. I recommended wearing a mask in public and around other people that are not vaccinated. 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 Annual mammograms and monthly breast self exams. Kesimpta previous discussed. Vitamin D3 supplementation 8000 IU daily Dalfampridine 10 mg twice a day Right knee brace and right foot orthotic. Right AFO not very helpful. Continue exercise MRI brain and cervical spine without contrast at [facility] in November 2020. Patient requires diazepam with MRI. Assessment & Plan (03/01/2020 10:32 AM DIETETIC TECHNICIAN REGISTERED): CSF 04/29/14: 8 unique OCB (0 bands serum). Next Ocrevus infusion March 29, 2020. The benefits and risks of Ocrevus discussed including serious infusion reactions, serious infections including respiratory/herpetic/PML infections and potential malignancy including breast cancer. Increased susceptibility to COVID-19 and risk of serious complications if develops coronavirus infection (COVID-19) discussed including pneumonia and possible reviewed. Patient wants to continue Ocrevus. Both the patient her are practicing social distancing. 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 Annual mammograms and monthly breast self exams. Kesimpta discussed. Vitamin D3 supplementation 8000 IU daily Dalfampridine 10 mg twice a day Right knee brace and right foot orthotic Continue exercise MRI brain and cervical spine March 2021 Assessment & Plan (09/03/2019 10:35 AM CDT): Next Ocrevus infusion September 27, 2019. The benefits and risks of Ocrevus discussed including serious infusion reactions, serious infections including respiratory/herpetic/PML infections and potential malignancy including breast cancer. Increased risk of serious complications if develops coronavirus infection (COVID-19) discussed including pneumonia and possible reviewed. Patient wants to continue Ocrevus. Both the patient her are practicing social distancing and primarily staying at home. Annual mammograms and monthly breast self exams. Ofatumumab discussed. Vitamin D3 supplementation 8000 IU daily Dalfampridine 10 mg twice a day Right knee brace and right foot orthotic Assessment & Plan (03/03/2019 10:47 AM DIETETIC TECHNICIAN REGISTERED): Next Ocrevus infusion March 2019. The benefits and risks of Ocrevus discussed including serious infusion reactions, serious infections including respiratory/herpetic/PML infections and potential malignancy including breast cancer. Annual mammograms and monthly breast self exams. Vitamin D3 supplementation 8000 IU daily Dalfampridine 10 mg twice a day Remyelination research discussed MRI of the brain and cervical spine without contrast at [facility] if does not participate in a remyelination trial. Medical marijuana discussed including CBD and THC. Benefits of CBD/THC for spasticity and pain in multiple sclerosis reviewed. Risks discussed including disorientation, paranoid behavior, addiction, drug interactions and hepatotoxicity. Assessment & Plan (07/24/2018 7:59 AM CDT): Next Ocrevus infusion September 2017. The benefits and risks of Ocrevus discussed including serious infusion reactions, serious infections including respiratory/herpetic/PML infections and potential malignancy including breast cancer. Annual mammograms and monthly breast self exams. Vitamin D3 supplementation Dalfampridine 10 mg twice a day Remyelination research discussed MRI of the brain and cervical spine March 2019 Assessment & Plan (02/16/2018 11:58 AM DIETETIC TECHNICIAN REGISTERED): Ocrevus. Reviewed risks including PML and infections Blood work will be done at [facility] on Friday per patient already has an appointment. Orders given today as well MRI of the brain and cspine summer 2018 Continue exercises Follow up in 6 months or contact us sooner if needed Assessment & Plan (08/01/2017 2:27 PM CDT): Ocrevus. Next dose September 2017. Reviewed risks including PML and infections Get blood work done prior to next infusion Can stop Ampyra for 1 week to see if still having meaningful benefit. Restart if you need to Continue PT exercises Follow up in 6 months. 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 07/24/2018 Encounters Date Type Department Care Team Description 04/08/2024 9:45 AM DIETETIC TECHNICIAN REGISTERED Infusion [facility] [address] [place] [id number] Multiple sclerosis (HCC) (Primary Dx) 04/08/2024 9:15 AM DIETETIC TECHNICIAN REGISTERED Office Visit [facility] [address] [place] [address] [address] [address] Denzel Montiel MD Multiple sclerosis (HCC) (Primary Dx); Chronic constipation 03/29/2024 Orders Only [facility] [address] [place] [address], [place] [address] Brianna Ashford PA 03/29/2024 Telephone [facility] [address] [place] [address] [address] [address] Sonido Kingsley Approval (Auth# [id number], 10/06/23-10/05/24) from Last 3 Months Immunizations Name Administration Dates Next Due Influenza, Quadrivalent, Spl it, Preservative Free, Intramuscular 01/15/2022 MMR 09/19/2005 Moderna SARS-CoV-2 Monovalent Vaccination (12+ Y RS) 06/16/2020,05/19/2020 Tdap 10/12/2017 ZOSTER Recombinant 02/12/2019,08/03/2018 Surgical History Surgery Date Site/Laterality Comments RADICAL HYSTERECTOMY Hysterectomy, radical Family History Medical History Relation Name Comments Breast cancer Mother Cancer, breast ; Relation Name Status Comments Mother Social History Tobacco Use Types Packs/Day Years Used Date Smoking Tobacco: Never Smokeless Tobacco: Never Tobacco Cessation:Counseling Given: Not Answered Alcohol Use Standard Drinks/Week Comments Yes 0 (1 standard drink = 0.6 oz pur e alcohol) Comments No Sex and Gender Information Value Date Recorded Sex Assigned at Not on file Legal Sex Female 5:21 AM DIETETIC TECHNICIAN REGISTERED Gender Identity Female 08/27/2019 8:47 PM CDT Sexual Orientation Straight 08/27/2019 8: 47 PM CDT Obstetrics History Last Filed Vital Signs Vital Sign Reading Time Taken Comments Blood Pressure 128/66 04/08/2024 1:15 PM DIETETIC TECHNICIAN REGISTERED Pulse 88 04/08/2024 1:15 PM DIETETIC TECHNICIAN REGISTERED Temperature 35.7 ??C (96.2 ??F) 04/08/2024 1:15 PM CS T Respiratory Rate 16 04/08/2024 1:15 PM DIETETIC TECHNICIAN REGISTERED Oxygen Saturation 98% 04/08/2024 1:15 PM DIETETIC TECHNICIAN REGISTERED Inhaled Oxygen Concentration - - Weight 71.3 kg (157 lb 3.2 oz) 04/08/2024 8:50 A M DIETETIC TECHNICIAN REGISTERED Height 162.6 cm (5' 4 ) 04/08/2024 8:50 AM DIETETIC TECHNICIAN REGISTERED Body Mass Index 26.98 04/08/2024 8:50 AM DIETETIC TECHNICIAN REGISTERED Plan of Treatment Health Maintenance Due Date Last Done Comments Colon Cancer Screening-Colonoscopy 1968 Depression Screening 1968 Hepatitis C Screening 1968 Hepatitis B Screening 1986 Regular Well Visit/Exam 18-64 1986 Breast Cancer Screening-Mammogram 10/19/2022 10/19/2021, 09/20/2019 Influenza Vaccine (#1) 2023 01/09/2023, 2021 DTaP/Tdap/Td Vaccine (2 - Td or Tdap) 10/13/2027 10/12/2017 Zoster Vaccine Completed 02/12/2019, 08/03/2018 Covid-19 Vaccine Completed 01/22/2024, 08/2022, 01/17/2022, Additional history exists Pneumococcal vaccine <65 Aged Out No longer eligible based on patient's age to complete this topic Procedures Procedure Name Priority Date/Time Associated Diagnosis Comments COMPREHENSIVE METABOLIC PANEL Routine 03/22/2024 7:22 AM DIETETIC TECHNICIAN REGISTERED Multiple sclerosis (HCC) High risk medication use CBC WITH AUTO DIFFERENTIAL Routine 03/22/2024 7:22 AM DIETETIC TECHNICIAN REGISTERED Multiple sclerosis (HCC) High risk medication use IMMUNOGLOBULINS A/E/G/M, SERUM Routine 03/22/2024 7:22 AM DIETETIC TECHNICIAN REGISTERED Multiple sclerosis (HCC) High risk medication use from Last 3 Months Results * (ABNORMAL) Immunoglobulins A/E/G/M, Serum (03/22/2024 7:22 AM DIETETIC TECHNICIAN REGISTERED) Immunoglobulin A 82 47 - 310 mg/dL [facility] Immunoglobulin E 4 <TV=539 kU/L [facility] Immunoglobulin G 841 600 - 1,640 mg/dL [facility] Immunoglobulin M 38(L) 50 - 300 mg/dL [facility] Blood 03/22/2024 7:22 AM DIETETIC TECHNICIAN REGISTERED 03/22/2024 7:22 AM DIETETIC TECHNICIAN REGISTERED us Denzel Montiel MD LAB BLOOD ORDERABLES Final Re sult [facility] [id number] [phone] * (ABNORMAL) CBC with auto differential (03/22/2024 7:22 AM DIETETIC TECHNICIAN REGISTERED) WBC 9.8 3.8 - 10.8 Thousand/u L [facility] RBC, POC 4.88 3.80 - 5.10 Million/uL [facility] Hgb 14.6 11.7 - 15.5 g/dL [facility] Hct 43.9 35.0 - 45.0 % [facility] MCV 90.0 80.0 - 100.0 fL [facility] MCH 29.9 27.0 - 33.0 pg [facility] MCHC 33.3 32.0 - 36.0 g/dL [facility] Comment: For adults, a slight decrease in the calculated MCHC value (in the range of 30 to 32 g/dL) is most likely not clinically significant; however, it should be interpreted with caution in correlation with other red cell parameters and the patient's clinical condition. Rdw 13.1 11.0 - 15.0 % [facility] Platelets 306 140 - 400 Thousand/u L [facility] MPV 10.9 7.5 - 12.5 fL [facility] Neutrophils, abs 5,958 1,500 - 7,800 cells/uL [facility] Lymphocytes, abs 2,509 850 - 3,900 cells/uL [facility] Monocyte abs 951(H) 200 - 950 cells/uL [facility] Eosinophils, abs 294 15 - 500 cells/uL [facility] Basophils, abs 88 0 - 200 cells/uL [facility] Neutrophils 60.8 % [facility] Lymphocyte pct 25.6 % [facility] Monocytes 9.7 % [facility] Eosinophils 3.0 % [facility] Basophils 0.9 % [facility] Blood 03/22/2024 7:22 AM DIETETIC TECHNICIAN REGISTERED 03/22/2024 7:22 AM DIETETIC TECHNICIAN REGISTERED us Denzel Montiel MD LAB BLOOD ORDERABLES Final Re sult [facility] [id number] [phone] * Comprehensive metabolic panel (03/22/2024 7:22 AM DIETETIC TECHNICIAN REGISTERED) Pathologist [facility] Glucose 94 65 - 99 mg/dL [facility] Comment: ? Fasting reference interval BUN 14 7 - 25 mg/dL [facility] Creatinine 0.72 0.50 - 1.03 mg/dL [facility] eGFR 99 > OR = 60 mL/min/1.7 3m2 [facility] BUN/creat ratio SEE NOTE: (calc) [facility] Comment: ?? Not Reported: BUN and Creatinine are within ?? reference range. ? Sodium 139 135 - 146 mmol/L [facility] Potassium, pl 4.3 3.5 - 5.3 mmol/L [facility] Chloride 101 98 - 110 mmol/L [facility] CO2 29 20 - 32 mmol/L [facility] Calcium 9.4 8.6 - 10.4 mg/dL [facility] Protein, sr 7.1 6.1 - 8.1 g/dL [facility] Albumin 4.8 3.6 - 5.1 g/dL [facility] GLOBULIN 2.3 1.9 - 3.7 g/dL (calc) [facility] Alb/glob ratio 2.1 1.0 - 2.5 (calc) [facility] Bilirubin, total 0.4 0.2 - 1.2 mg/dL [facility] Alk phos 69 37 - 153 U/L [facility] AST 16 10 - 35 U/L [facility] ALT (SGPT) 20 6 - 29 U/L [facility] Blood 03/22/2024 7:22 AM DIETETIC TECHNICIAN REGISTERED 03/22/2024 7:22 AM DIETETIC TECHNICIAN REGISTERED us Denzel Montiel MD LAB BLOOD ORDERABLES Final Re sult [facility] [id number] [phone] from Last 3 Months Insurance [facility] [employer] [place] [place] Address: [facility] [address] [place] [address] [facility] [employer] Address: [facility] [id number] [place] [address] [facility] [place] [employer] [place] Address: [address] [address] [place] [address] [employer] [facility] Address: [facility] [id number] [place] [address] [facility] [place] [employer] [place] Address: [address] [address] [place] [address] Care Teams Wrapper Caser Relationship Specialty Start Date End Date Jose Alberto Lima MD PCP - General 07/05/16
--- OUTSIDE RECORDS SUMMARY | 2024-05-11 12:43 | XMS_ITS | Patient Health Summary ---
Author Organization [email or web address] Address [address] [place] [address] Care Team Providers Care Pressure Tank Operator Name Role Phone Jose Alberto Lima MD Primary Care Provider [phone] Note from [facility],non-owned Affiliates and Associated Physician Practices is amultiple site organization consisting of ambulatory clinics and hospital sitesin [place], [place], [place] and [place]. This disclosure is being madepursuant to the Care Everywhere program and may not contain all information available regarding this patient. Last updated 17.[email or web address] Allergies * Codeine(Other) Medications * Be aware that medications may not be up to date on this document. Alwaysverify current medications with the patient. * dalfampridine (AMPYRA) 10 MG tablet Take 10 mg by mouth every 12 hours * Multiple Vitamins-Minerals (MULTIVITAL PO) * Finger-3 Fatty Acids (FISH OIL) 1000 MG capsule * Vitamins A & D (VITAMIN A & D) 8000-400 units * Probiotic Product (PROBIOTIC-10 PO) * Psyllium (METAMUCIL FIBER PO) * Ocrelizumab (OCREVUS IV) Infusion Q 6 months Social History Tobacco Use Types Packs/Day Years Used Date Smoking Tobacco: Never Smokeless Tobacco: Never Tobacco Cessation:Counseling Given: Yes Sex and Gender Information Value Date Recorded Sex Assigned at Not on file Gender Identity Not on file Sexual Orientation Not on file Last Filed Vital Signs Vital Sign Reading Time Taken Comments Blood Pressure 128/80 05/20/2020 3:55 PM BEVELING AND EDGING MACHINE OPERATOR Pulse 80 05/20/2020 3:55 PM BEVELING AND EDGING MACHINE OPERATOR Temperature 36.8 ??C (98.2 ??F) 05/20/2020 3:55 PM CS T Respiratory Rate - - Oxygen Saturation 100% 05/20/2020 3:55 PM BEVELING AND EDGING MACHINE OPERATOR Inhaled Oxygen Concentration - - Weight 68.9 kg (152 lb) 05/20/2020 3:55 PM BEVELING AND EDGING MACHINE OPERATOR Height 162.6 cm (5' 4 ) 05/20/2020 3:55 PM BEVELING AND EDGING MACHINE OPERATOR Body Mass Index 26.09 05/20/2020 3:55 PM BEVELING AND EDGING MACHINE OPERATOR Procedures * STREP A SCREEN - POINT OF CARE (AMB) STL(Performed 05/20/2020) Performed for Tonsillitis * CULTURE RESPIRATORY UPPER(Performed 05/20/2020) Performed for Tonsillitis Results * (ABNORMAL) CULTURE RESPIRATORY UPPER (05/20/2020 4:07 PM BEVELING AND EDGING MACHINE OPERATOR) Upper Respiratory Culture Final report(A) [facility] ACCOUNT BILL Result 1 (A) [facility] ACCOUNT BILL Comment: Beta hemolytic Streptococcus, group B Heavy growth Penicillin and ampicillin are drugs of choice for treatment of beta-hemolytic streptococcal infections. Susceptibility testing of penicillins and other beta-lactam agents approved by the FDA for treatment of beta-hemolytic streptococcal infections need not be performed routinely because nonsusceptible isolates are extremely rare in any beta-hemolytic streptococcus and have not been reported for Streptococcus pyogenes (group A). (CLSI) Microbiology ENTIRE THROAT (SURFACE REGION OF NECK) / Unknown 05/20/2020 4:07 PM BEVELING AND EDGING MACHINE OPERATOR 05/23/2020 Narrative Resulting Agency Comment Lab Testing performed at: [facility] ??[facility] [phone] Charisma Baird RECORDS ANALYST-INSIDE SALES AGENT LAB - MICROBIOLOGY ORDERABLES [facility] ACCOUNT BILL [address] [place] [address] * STREP A SCREEN (05/20/2020 4:07 PM BEVELING AND EDGING MACHINE OPERATOR) Strep A Rapid POCT Negative Negative [facility] Strep A Internal Control Present [facility] Lot # [id number] [facility] Expiration Date 02 04 21 [facility] Throat ENTIRE THROAT (SURFACE REGION OF NECK) / Unknown 05/20/2020 4:07 PM BEVELING AND EDGING MACHINE OPERATOR Charisma Baird RECORDS ANALYST-INSIDE SALES AGENT LAB - POINT OF CARE ORDERABLES [facility] [address] [place] [address], [facility] [phone] Care Teams Pressure Tank Operator Relationship Specialty Start Date End Date Jose Alberto Lima MD [address] [place] [address] PCP - General Family Medicine 05/20/20
--- OUTSIDE RECORDS SUMMARY | 2024-05-11 12:43 | XMS_ITS | Referral Summary ---
Author Organization [facility] Address [address] [place] [address] Care Team Providers Care Web Systems Developer Name Role Phone Jose Alberto Lima MD Primary Care Provider Encounters Date Type Department Care Team Description 04/08/2024 9:45 AM SENIOR HYDROGEOLOGIST Infusion [facility] [address] [place] [phone] Multiple sclerosis (HCC) (Primary Dx) 04/08/2024 9:15 AM SENIOR HYDROGEOLOGIST Office Visit [facility] [address] [place] [phone] Denzel Montiel MD Multiple sclerosis (HCC) (Primary Dx); Chronic constipation 03/29/2024 Orders Only [facility] [address] [place] [address] [place] [phone] Brianna Ashford PA 03/29/2024 Telephone [facility] [address] [place] [phone] Sonido Kingsley Approval (Auth# [id number], 10/06/23-10/05/24) from Last 3 Months Allergies Active Allergy Reactions Criticality Noted Date [...] 07/24/2018 Assessment & Plan (04/08/2024 8:49 AM SENIOR HYDROGEOLOGIST): Metamucil Probiotics Adequate water intake Assessment & Plan (10/08/2023 5:36 PM CDT): Metamucil Probiotics Adequate water intake Assessment & Plan (04/08/2023 12:34 PM SENIOR HYDROGEOLOGIST): Metamucil Probiotics Adequate water intake Assessment & Plan (09/26/2022 6:59 PM CDT): Metamucil Probiotics Adequate water intake Assessment & Plan (03/29/2022 8:16 AM SENIOR HYDROGEOLOGIST): Metamucil Probiotics Adequate water intake Assessment & Plan (09/30/2021 11:56 AM CDT): Metamucil Probiotics Increased water intake Assessment & Plan (03/29/2021 8:30 AM SENIOR HYDROGEOLOGIST): Metamucil Probiotics Increased water intake Assessment & Plan (09/07/2020 10:07 AM CDT): Metamucil Probiotics Increased water intake Assessment & Plan (03/01/2020 10:29 AM SENIOR HYDROGEOLOGIST): Metamucil Probiotics Increased water intake Assessment & Plan (09/03/2019 10:34 AM CDT): Metamucil Probiotics Increased water intake Assessment & Plan (03/03/2019 10:47 AM SENIOR HYDROGEOLOGIST): Metamucil Increased water intake MiraLax not tolerated well. Assessment & Plan (07/24/2018 7:58 AM CDT): MiraLax Good water intake High risk medication use 08/01/2017 Multiple sclerosis 05/17/2014 Assessment & Plan (04/09/2024 7:25 AM SENIOR HYDROGEOLOGIST): CSF 04/29/14: 8 unique OCB (0 bands [...] 2025 Assessment & Plan (04/08/2023 12:34 PM SENIOR HYDROGEOLOGIST): CSF 04/29/14: 8 unique OCB (0 bands [...] cervical spine without contrast January 2023 at [facility] Assessment & Plan (03/29/2022 8:16 AM SENIOR HYDROGEOLOGIST): CSF 04/29/14: 8 unique OCB (0 bands [...] and potentially she may not be protected. Mariloulovigarett advised if she develops COVID-19. 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 Annual mammograms and monthly breast self exams. Kesimpta previous discussed. Vitamin D3 supplementation 8000 IU daily Dalfampridine 10 mg twice a day Right knee brace and right foot orthotic. Right AFO not very helpful. Continue exercise MRI brain and cervical spine without contrast at [facility] in November 2020. Patient requires diazepam with MRI. Assessment & Plan (03/01/2020 10:32 AM SENIOR HYDROGEOLOGIST): CSF 04/29/14: 8 unique OCB (0 bands [...] are practicing social distancing. 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 The benefits and risks of Ocrevus discussed including serious infusion reactions, serious infections including respiratory/herpetic/PML infections and potential malignancy including breast cancer. Annual mammograms and monthly breast self exams. Vitamin D3 supplementation 8000 IU daily Dalfampridine 10 mg twice a day Remyelination research discussed MRI of the brain and cervical spine without contrast at [facility] if does not participate in a remyelination [...] 2019 Assessment & Plan (02/16/2018 11:58 AM SENIOR HYDROGEOLOGIST): Ocrevus. 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/2014 07/24/2018 Immunizations Name Administration Dates Next Due Influenza, Quadrivalent, Spl it, Preservative Free, Intramuscular 01/15/2022 MMR 09/19/2005 Moderna SARS-CoV-2 Monovalent Vaccination (12+ Y RS) 06/16/2020,05/19/2020 Tdap 10/12/2017 ZOSTER Recombinant 02/12/2019,08/03/2018 Social History Tobacco Use Types Packs/Day Years Used Date Smoking Tobacco: Never Smokeless Tobacco: Never Tobacco Cessation:Counseling Given: Not Answered Alcohol Use Standard Drinks/Week Comments Yes 0 (1 standard drink = 0.6 oz pur e alcohol) Comments No Sex and Gender Information Value Date Recorded Sex Assigned at Not on file Legal Sex Female 5:21 AM SENIOR HYDROGEOLOGIST Gender Identity Female 08/27/2019 8:47 PM CDT Sexual Orientation Straight 08/27/2019 8: 47 PM CDT Last Filed Vital Signs Vital Sign Reading Time Taken Comments Blood Pressure 128/66 04/08/2024 1:15 PM SENIOR HYDROGEOLOGIST Pulse 88 04/08/2024 1:15 PM SENIOR HYDROGEOLOGIST Temperature 35.7 ??C (96.2 ??F) 04/08/2024 1:15 PM CS T Respiratory Rate 16 04/08/2024 1:15 PM SENIOR HYDROGEOLOGIST Oxygen Saturation 98% 04/08/2024 1:15 PM SENIOR HYDROGEOLOGIST Inhaled Oxygen Concentration - - Weight 71.3 kg (157 lb 3.2 oz) 04/08/2024 8:50 A M SENIOR HYDROGEOLOGIST Height 162.6 cm (5' 4 ) 04/08/2024 8:50 AM SENIOR HYDROGEOLOGIST Body Mass Index 26.98 04/08/2024 8:50 AM SENIOR HYDROGEOLOGIST Plan of Treatment Not on file Procedures Procedure Name Priority Date/Time Associated Diagnosis Comments COMPREHENSIVE METABOLIC PANEL Routine 03/22/2024 7:22 AM SENIOR HYDROGEOLOGIST Multiple sclerosis (HCC) High risk medication use CBC WITH AUTO DIFFERENTIAL Routine 03/22/2024 7:22 AM SENIOR HYDROGEOLOGIST Multiple sclerosis (HCC) High risk medication use IMMUNOGLOBULINS A/E/G/M, SERUM Routine 03/22/2024 7:22 AM SENIOR HYDROGEOLOGIST Multiple sclerosis (HCC) High risk medication use from Last 3 Months Results * (ABNORMAL) Immunoglobulins A/E/G/M, Serum (03/22/2024 7:22 AM SENIOR HYDROGEOLOGIST) Pathologist [facility] Immunoglobulin A 82 47 - 310 mg/dL [facility] Immunoglobulin E 4 <DP=925 kU/L [facility] Immunoglobulin G 841 600 - 1,640 mg/dL [facility] Immunoglobulin M 38(L) 50 - 300 mg/dL [facility] Blood 03/22/2024 7:22 AM SENIOR HYDROGEOLOGIST 03/22/2024 7:22 AM SENIOR HYDROGEOLOGIST us Denzel Montiel MD LAB BLOOD ORDERABLES Final Re sult [facility] [address] [place] [address] * (ABNORMAL) CBC with auto differential (03/22/2024 7:22 AM SENIOR HYDROGEOLOGIST) Pathologist [facility] WBC 9.8 3.8 - 10.8 Thousand/u L [...] [facility] Blood 03/22/2024 7:22 AM SENIOR HYDROGEOLOGIST 03/22/2024 7:22 AM SENIOR HYDROGEOLOGIST Denzel Montiel MD LAB BLOOD ORDERABLES Final Re sult [facility] [address] [place] [address] * Comprehensive metabolic panel (03/22/2024 7:22 AM SENIOR HYDROGEOLOGIST) Glucose 94 65 - 99 mg/dL [facility] [...] [facility] Blood 03/22/2024 7:22 AM SENIOR HYDROGEOLOGIST 03/22/2024 7:22 AM SENIOR HYDROGEOLOGIST us Denzel Montiel MD LAB BLOOD ORDERABLES Final Re sult [facility] [address] [facility] [place] [address] from Last 3 Months Insurance [facility] HMO/PPO Address: [facility] [id number] [place] [address] [facility] [employer] [employer] [employer] Address: [facility] [address] [place] [address] [facility] HMO/PPO Address: [address] [address] [place] [address] [facility] [employer] Address: [facility] [address] [phone] [facility] CHO[facility] HMO/PPO Address: [address] [address] [place] [address] Care Teams Web Systems Developer Relationship Specialty Start Date End Date Jose Alberto Lima MD PCP - General 07/05/16
--- OUTSIDE RECORDS SUMMARY | 2024-05-11 12:43 | XMS_ITS | Encounter Summary ---
Author Organization [facility] Address [address] [place] [address] Care Team Providers Care Ceramist Name Role Phone Jose Alberto Lima MD Primary Care Provider [phone] Encounter Details Date Type Department Care Team (Late st Contact Info) Description 11/10/2023 Orders Only [facility] Information Management [address] [place] [phone] Denzel Montiel MD [address] [facility] [address] [place] [address] Social History Tobacco Use Types Packs/Day Years Used Date Smoking Tobacco: Never Smokeless Tobacco: Never Alcohol Use Standard Drinks/Week Comments Yes 0 (1 standard drink = 0.6 oz pur e alcohol) Comments Unknown Sex and Gender Information Value Date Recorded Sex Assigned at Not on file Legal Sex Female 5:21 AM RESISTANCE MACHINE WELDER SETTER Gender Identity Female 08/27/2019 8:47 PM CDT Sexual Orientation Straight 08/27/2019 8: 47 PM CDT documented as of this encounter Plan of Treatment Not on file documented as of this encounter Procedures Procedure Name Priority Date/Time Associated Diagnosis Comments SCAN - LABS 11/10/2023 documented in this encounter Results * SCAN - LABS (11/10/2023) us Denzel Montiel MD Final Result documented in this encounter Visit Diagnoses Not on filedocumented in this encounter Care Teams Ceramist Relationship Specialty Start Date End Date Jose Alberto Lima MD PCP - General 07/05/16 documented as of this encounter
[2024-05-11 13:31] VITALS: BP 148/77; PULSE 90; RESP 17; TEMP 37.2; O2SAT 97
[2024-05-11 14:21] LABS: EDINFLUASCREEN Positive (Negative); EDINFLUBSCREEN Negative (Negative)
[2024-05-11 14:21] LABS: EDCOVIDSCREEN Negative (Negative)
--- NOTE | 2024-05-11 14:25 | ED.URI ---
HPI - URI/Sore Throat General Chief Complaint: Upper Respiratory Infection Stated Complaint: flu like symptoms Time Seen by Provider: 05/11/24 14:25 Source: patient, RN notes reviewed and old records reviewed Mode of arrival: ambulatory Limitations: no limitations History of Present Illness HPI Narrative: Patient presents with complaints of flu-like symptoms that began 2 days ago. She is accompanied by her who also has the same complaints. She has been taking over the counter medications with moderate relief. Reports that she feels better today than she did yesterday. Last medication today was at 9 this morning. She is not in any distress, denies any injury or trauma. Related Data Home Medications ?Medication ?Instructions ?Recorded ?Confirmed ?Last Taken ?Type dalfampridine 10 mg 10 mg PO Q12H 11/26/22 05/27/23 Unknown History tablet,extended release,12 hr (Ampyra) ocrelizumab 30 mg/mL intravenous 300 mg IV [id number] 11/26/22 05/27/23 Unknown History solution (Ocrevus) Allergies Allergy/AdvReac Type Severity Reaction Status Date / Time codeine Allergy Unknown syncopal Verified 05/11/24 14:30 episode Review of Systems Review of Systems: All systems reviewed & are unremarkable except as noted in HPI and below Constitutional: Constitutional: Reports body ache(s), Reports chills, Reports fever(s), Reports headache(s) and Reports lethargy ENT: Reports system reviewed and no additional complaints, except as documented, Reports otalgia, Reports nasal congestion and Reports nasal discharge Cardiovascular: Cardiovascular: Reports no additional cardiovascular complaints Respiratory: Respiratory: Reports no additional respiratory complaints and Reports cough Gastrointestinal: Gastrointestinal: Reports no additional gastrointestinal complaints [facility] Past Medical History Medical History BMI 25.0-25.9,adult Multiple sclerosis Family History Family History Father Heart disease History of open heart surgery Hypertension Mother Breast cancer Memory change Sibling No problems noted. Social History Social History Smoking status: Never smoker Second hand tobacco smoke exposure: Yes Alcohol intake: current Substance use: never Substance use type: does not use Living arrangements: with family Occupation/Education: occupation Additional occupation/education comments: [employer] Gender identity (if verbalized by the patient): Female Comments At the time of my signature, I reviewed and agree with the nursing past medical, surgical, social, and family history. There is no relevant family history pertinent to the patient complaint. Exam Const: General: cooperative, no acute distress, alert and awake Orientation/consciousness: oriented to person, oriented to place and oriented to time HENMT: Head: normal to inspection Ears: TM's normal bilaterally Mouth: Yes moist mucous membranes Resp: Effort & Inspection: normal respiratory effort and able to speak in complete sentences Auscultation: clear to auscultation bilaterally, no crackles, no rales, no rhonchi and no wheezes Cardio: Palpation: normal PMI Rate: regular rate Rhythm: regular rhythm Heart sounds: S1 normal heart sound present and S2 normal heart sound present Neuro: General: oriented to person, oriented to place and oriented to time Cranial nerves: Yes CN's II-XII intact bilaterally Psych: Appearance: grossly normal Thought process: Normal thought process present Insight: Good insight present (Psych) Judgement: Good judgement present (Psych) Course Course Level of Care: Express Care Visit Vital Signs Vital signs: Vital Signs Temperature 98.9 F 05/11/24 13:31 Pulse Rate 90 05/11/24 13:31 Respiratory Rate 17 05/11/24 13:31 Blood Pressure 148/77 H 05/11/24 13:31 Pulse Oximetry 97 05/11/24 13:31 Oxygen Delivery Room Air 05/11/24 13:31 Temperature 98.9 F 05/11/24 13:31 Pulse Rate 90 05/11/24 13:31 Respiratory Rate 17 05/11/24 13:31 Blood Pressure 148/77 H 05/11/24 13:31 Pulse Oximetry 97 05/11/24 13:31 Oxygen Delivery Room Air 05/11/24 13:31 Reviewed MDM - URI/Sore Throat MDM Narrative Medical decision making narrative: Positive influenza, supportive care measures discussed. Patient is nontoxic appearing, stable for discharge home. Discharge instructions reviewed with patient, as well as provided in writing per nursing staff. The instructions also include specific and strict return/GO TO THE ER as well as f/u information. All questions have been answered, and the patient deny any further questions with discharge and discharge plan. Some parts of this dictation were generated by voice recognition software and may contain typographical and/or grammatical inaccuracies. Differential Diagnosis Differential diagnosis: Likely upper respiratory infection, otitis media, viral infection and influenza Medical Records Attestation: I reviewed the patient's medical records. Lab Data Attestation: I reviewed the patient's lab results. Labs: Lab Results 05/11/24 05/11/24 Range/Units 14:18 14:19 POC Influenza A Ag Positive (Negative) POC Influenza B Ag Negative (Negative) POC SARS CoV-2 Ag Negative (Negative) Discharge Plan Discharge Clinical Impression: Influenza Patient Disposition: Home, Self-Care Condition: Stable Instructions: Antibiotic Form, Influenza (ED) Additional Instructions: Use [id number] medications to treat your symptoms. Follow-up with primary care provider. Emergency department for any new or worsening some Patient Language: Croatian Prescriptions: No Action Ocrevus 30 mg/mL solution 300 mg IV [id number] dalfampridine [Ampyra] 10 mg tablet extended release 12 hr 10 mg PO Q12H Follow-up/Referrals: Jose Alberto Lima MD [Primary Care Provider] - 2 Weeks Stand Alone Forms: Work/School Release IP Time of Disposition: 14:40
== END 2024-05-11 14:48 | disposition home or self-care (01) ==
PROVIDERS: Emergency Provider Nurse Practitioner Family; PCP Family Medicine
DX: J11.1 Influenza due to unidentified influenza virus with other respiratory manifestations (principal); G35 Multiple sclerosis; Z20.822 Contact with and (suspected) exposure to COVID-19
CPT/HCPCS: 87426; 87804; 99212; G0463

== ENCOUNTER 2024-12-30 15:54 | Outpatient (CLI) | payer OTHER, SELFPAY ==
--- NOTE | ~2024-12-30 | MM_ITS ---
EXAMINATION: MM screening christopher BI w alanis HISTORY: Screening TECHNIQUE: Craniocaudal and mediolateral oblique 3-D tomosynthesis images were obtained and synthetic 2-D images were generated. CAD analysis was submitted and interpreted. COMPARISON: 10/19/2021 BREAST PARENCHYMAL COMPOSITION: The breasts are heterogeneously dense, which may obscure small masses. FINDINGS: There is no evidence of suspicious mass, calcification, or architectural distortion to suggest malignancy. There has been no suspicious interval change. IMPRESSION: 1. No mammographic evidence of malignancy. Recommend routine screening mammography in one year. BI-RADS Category 2: Benign finding(s) Reviewed, dictated and finalized at location Q. IMPRESSION: 1. No mammographic evidence of malignancy. Recommend routine screening mammogra phy in one year. BI-RADS Category 2: Benign finding(s)
--- OUTSIDE RECORDS SUMMARY | 2024-12-30 17:40 | XMS_ITS | Clinical Summary ---
Author Organization [facility] Address [address] [place] [address] Care Team Providers Care Humidifier Attendant Name Role Phone Jose Alberto Lima MD Primary Care Provider Allergies Active Allergy Reactions Criticality Noted Date Comments Codeine Other (See comments),Syncope Reaction: Unknown, , Reaction: Syncope/Low BP, Medications fish oil-dha-epa 1,200-144-216 mg capsule 0 0 7 Active Additional Information Patient taking differently: (No dose reported), oral Daily, Reported on 10/05/2024 ocrelizumab (OCREVUS) 30 mg/mL solution Infuse 20 mL (600 mg total) into a venous catheter every 6 (six) months. 1 vial 7 Active cholecalciferol, vitamin D3, (VITAMIN D3 ORAL)Indications :Multiple sclerosis,Vitami n D deficiency Take 8,000 Units by mouth daily Active L.acid/B.animali s,bifi,inf,andrey (5X PROBIOTIC ORAL) daily Active MULTIVITAMIN ORAL daily Active psyllium (METAMUCIL) powder as needed Active diazePAM (VALIUM) 5 mg tablet Take 1 tablet 1 hour prior to MRI, may repeat 30 mins prior to exam. 2 tablet 3 Active dalfampridine 10 mg tablet extended release 12 hrIndications:Mu ltiple sclerosis Take 1 tablet (10 mg total) by mouth every 12 (twelve) hours 180 tablet 3 5 Active estradioL (ESTRACE) 0.01 % (0.1 mg/gram) vaginal cream Insert into the vagina daily 5 Active nitrofurantoin monohydrate (MACROBID) 100 mg capsule Take 1 capsule (100 mg total) by mouth 2 (two) times a day Active Active Problems Problem Noted Date Diagnosed Date Right hemiparesis 10/05/2024 Chronic constipation 07/24/2018 Assessment & Plan (04/08/2024 8:49 AM MEDICINE AND HEALTH SERVICE MANAGER): Metamucil Probiotics Adequate water intake Assessment & Plan (10/08/2023 5:36 PM CDT): Metamucil Probiotics Adequate water intake Assessment & Plan (04/08/2023 12:34 PM MEDICINE AND HEALTH SERVICE MANAGER): Metamucil Probiotics Adequate water intake Assessment & Plan (09/26/2022 6:59 PM CDT): Metamucil Probiotics Adequate water intake Assessment & Plan (03/29/2022 8:16 AM MEDICINE AND HEALTH SERVICE MANAGER): Metamucil Probiotics Adequate water intake Assessment & Plan (09/30/2021 11:56 AM CDT): Metamucil Probiotics Increased water intake Assessment & Plan (03/29/2021 8:30 AM MEDICINE AND HEALTH SERVICE MANAGER): Metamucil Probiotics Increased water intake Assessment & Plan (09/07/2020 10:07 AM CDT): Metamucil Probiotics Increased water intake Assessment & Plan (03/01/2020 10:29 AM MEDICINE AND HEALTH SERVICE MANAGER): Metamucil Probiotics Increased water intake Assessment & Plan (09/03/2019 10:34 AM CDT): Metamucil Probiotics Increased water intake Assessment & Plan (03/03/2019 10:47 AM MEDICINE AND HEALTH SERVICE MANAGER): Metamucil Increased water intake MiraLax not tolerated well. Assessment & Plan (07/24/2018 7:58 AM CDT): MiraLax Good water intake High risk medication use 08/01/2017 Multiple sclerosis 05/17/2014 Assessment & Plan (04/09/2024 7:25 AM MEDICINE AND HEALTH SERVICE MANAGER): CSF 04/29/14: 8 unique OCB (0 bands [...] 2025 Assessment & Plan (04/08/2023 12:34 PM MEDICINE AND HEALTH SERVICE MANAGER): CSF 04/29/14: 8 unique OCB (0 bands [...] cervical spine without contrast January 2023 at [facility] Assessment & Plan (03/29/2022 8:16 AM MEDICINE AND HEALTH SERVICE MANAGER): CSF 04/29/14: 8 unique OCB (0 bands [...] 2023 Assessment & Plan (03/29/2021 8:30 AM MEDICINE AND HEALTH SERVICE MANAGER): CSF 04/29/14: 8 unique OCB (0 bands [...] 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 Annual mammograms and monthly breast self exams. Kesimpta previous discussed. Vitamin D3 supplementation 8000 IU daily Dalfampridine 10 mg twice a day Right knee brace and right foot orthotic. Right AFO not very helpful. Continue exercise MRI brain and cervical spine without contrast at [facility] in November 2020. Patient requires diazepam with MRI. Assessment & Plan (03/01/2020 10:32 AM MEDICINE AND HEALTH SERVICE MANAGER): CSF 04/29/14: 8 unique OCB (0 bands [...] are practicing social distancing. 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 The benefits and risks of Ocrevus discussed including serious infusion reactions, serious infections including respiratory/herpetic/PML infections and potential malignancy including breast cancer. Annual mammograms and monthly breast self exams. Vitamin D3 supplementation 8000 IU daily Dalfampridine 10 mg twice a day Remyelination research discussed MRI of the brain and cervical spine without contrast at [facility] if does not participate in a remyelination [...] 2019 Assessment & Plan (02/16/2018 11:58 AM MEDICINE AND HEALTH SERVICE MANAGER): Ocrevus. Reviewed risks including PML and infections Blood work will be done at [facility] on Friday per patient already has an [...] 019 Assessment & Plan (02/16/2018 11:58 AM MEDICINE AND HEALTH SERVICE MANAGER): Continue Vitamin D 3,000IU per day Assessment & Plan (08/01/2017 2:27 PM CDT): Continue daily Vitamin D Neuropathy 03/01/2014 07/24/2018 Paresis of single lower extremity 01/31/2014 07/24/2018 Encounters Date Type Department Care Team Description 10/05/2024 10:00 AM CDT Infusion [facility] [address] [place] [address] [address] [address] Multiple sclerosis (HCC) (Primary Dx) 10/05/2024 9:15 AM CDT Office Visit [facility] [address] [place] [address], [place] [address] Denzel Montiel MD Multiple sclerosis (HCC) (Primary Dx); Right hemiparesis (HCC); Chronic constipation 10/05/2024 Telephone [facility] [address] [place] [address] [address] [address] Sonido Kingsley copay assistance questions from Last 3 Months Immunizations Immunization Administration Dates Next Due Influenza, Quadrivalent, Spl [...] on file Legal Sex Female 5:21 AM MEDICINE AND HEALTH SERVICE MANAGER Gender Identity Female 08/27/2019 8:47 PM CDT Sexual Orientation Straight 08/27/2019 8: 47 PM CDT Obstetrics History Last Filed Vital Signs Vital Sign Reading Time Taken Comments Blood Pressure 123/70 10/05/2024 1:00 PM CDT Pulse 80 10/05/2024 1:00 PM CDT Temperature 36.5 C (97.7 F) 10/05/2024 1:00 PM CDT Respiratory Rate 19 10/05/2024 1:00 PM CDT Oxygen Saturation 100% 10/05/2024 1:00 PM CDT Inhaled Oxygen Concentration - - Weight 71.4 kg (157 lb 8 oz) 10/05/2024 8:42 AM CDT Height 162.6 cm (5' 4) 10/05/2024 8:42 AM CDT Body Mass Index 27.03 10/05/2024 8:42 AM CDT Plan of Treatment Health Maintenance Due Date Last Done Comments Colon Cancer Screening-Colonoscopy 1968 Depression Screening 1968 Hepatitis C Screening 1968 Hepatitis B Screening 1986 Regular Well Visit/Exam 18-64 1986 Breast Cancer Screening-Mammogram 10/19/2022 10/19/2021, 09/20/2019 Covid-19 Vaccine (8 - Moderna risk season) 2024 01/22/2024, 01/09/2023, 01/17/2022, Additional history exists Influenza Vaccine (#1) 2024 01/09/2023, 2021 DTaP/Tdap/Td Vaccine (2 - Td or Tdap) 10/13/2027 10/12/2017 Zoster Vaccine Completed 02/12/2019, 08/03/2018 Pneumococcal vaccine <65 Aged Out No longer eligible based on patient's age to complete this topic Insurance [facility] CIGNA [facility] PL[facility] Care Teams Humidifier Attendant Relationship Specialty Start Date End Date Jose Alberto Lima MD PCP - General 07/05/16
--- OUTSIDE RECORDS SUMMARY | 2024-12-30 17:40 | XMS_ITS | Clinical Summary ---
Author Organization [facility] Address [address] [place] [address] Phone Care Team Providers Care High School Principal Name Role Phone Jose Alberto Lima MD Primary Care Provider [phone] Allergies Active Allergy Reactions Criticality Noted Date Comments Codeine Unknown 09/29/2012 Black out, pass out Medications Fish Oil-[place]-3 Fatty Acids (FISH OIL OMEGA 3-6-9) 300-1,000 [...] 69 12/14/2013 3:19 PM CDT Temperature 37.1 C (98.8 F) 10/07/2012 4:35 PM CDT Respiratory Rate 18 12/14/2013 3:19 PM CDT Oxygen Saturation 100% 10/07/2012 4:35 PM CDT Inhaled Oxygen Concentration - - Weight 71.7 kg (158 lb) 12/14/2013 3:19 PM CDT Height 162.6 cm (5' 4) 12/14/2013 3:19 PM CDT Body Mass Index 27.12 12/14/2013 3:19 PM CDT Plan of Treatment Health Maintenance Due Date Last Done Comments HEPATITIS B VACCINES (1 of 3 - 19+ 3-dose series) 07/05/1987 BREAST CANCER SCREENING 2008 FIT-DNA Q 3 years 2013 FIT/FOBT Q 1 year 2013 Flex Sig/CT Colonography Q 5 years 2013 INFLUENZA VACCINE (#1) 2024 01/15/2022 COVID-19 Vaccine (3 - 2024- season) 12/06/202403/2021, 05/19/2020 DTAP/TDAP/TD VACCINES (2 - Td or Tdap) 10/13/2027 COLORECTAL SCREENING 10/06/2028 10/06/2018, 10/07/19 13 Colorectal Cancer Screening 10/06/2028 ZOSTER VACCINE Completed 02/12/2019, 08/03/2018 Insurance BLUE ACCESS/TRUE BLUE PPO [facility] [id number] Advance Directives For more information, please contact: [phone] * Full Code (Latest Code Status on File) Date Activated Date Inactivated Comments 10/07/2012 1:24 PM 10/07/2012 7:21 PM * Full Code Date Activated Date Inactivated Comments 10/07/2012 11:58 AM 10/07/2012 1:24 PM * Full Code Date Activated Date Inactivated Comments 10/06/2012 8:21 AM 10/06/2012 12:54 PM Care Teams High School Principal Relationship Specialty Start Date End Date Jose Alberto Lima MD [address] [place] [address] PCP - General Family Practice 09/29/12
--- OUTSIDE RECORDS SUMMARY | 2024-12-30 17:40 | XMS_ITS | Clinical Summary ---
Author Organization [facility] [employer] Address [address] [facility] [place] [address] Care Team Providers Care Director Life Sales Name Role Phone Jose Alberto Lima MD Primary Care Provider [phone] Source Comments [facility] [employer],non-owned Affiliates and Associated Physician Practices is amultiple site organization consisting of ambulatory clinics and hospital sitesin [place], [place], [place] and [place]. This disclosure is being madepursuant to the Care Everywhere program and may not contain all information available regarding this patient. Last updated 17.[facility] [employer] Allergies Active Allergy Reactions Criticality Noted Date Comments Codeine Other 05/20/2020 blackout Medications * Be aware that medications may not be up to date on this document. Alwaysverify current medications with the patient. dalfampridine (AMPYRA) 10 MG tablet Take 10 mg by mouth every 12 hours Active Multiple Vitamins-Minera ls (MULTIVITAL PO) Active Vansant-3 Fatty Acids (FISH OIL) 1000 MG capsule Active Vitamins A & D (VITAMIN A & D) 8000-400 units Activ e Probiotic Product (PROBIOTIC-10 PO) Active Psyllium (METAMUCIL FIBER PO) Active Ocrelizumab (OCREVUS IV) Infusion Q 6 months Active Family History Medical History Relation Name Comments CAD (Coronary Artery Disease) Father Hypertension Father Cancer - Breast Mother Hypertension Mother Relation Name Status Comments Father Mother Social History Tobacco Use Types Packs/Day Years Used Date Smoking Tobacco: Never Smokeless Tobacco: Never Tobacco Cessation:Counseling Given: Yes Comments No Sex and Gender Information Value Date Recorded Sex Assigned at Not on file Legal Sex Female 3:04 PM JUNIOR ACCOUNTANT Gender Identity Not on file Sexual Orientation Not on file Last Filed Vital Signs Vital Sign Reading Time Taken Comments Blood Pressure 128/80 05/20/2020 3:55 PM JUNIOR ACCOUNTANT Pulse 80 05/20/2020 3:55 PM JUNIOR ACCOUNTANT Temperature 36.8 C (98.2 F) 05/20/2020 3:55 PM JUNIOR ACCOUNTANT Respiratory Rate - - Oxygen Saturation 100% 05/20/2020 3:55 PM JUNIOR ACCOUNTANT Inhaled Oxygen Concentration - - Weight 68.9 kg (152 lb) 05/20/2020 3:55 PM JUNIOR ACCOUNTANT Height 162.6 cm (5' 4) 05/20/2020 3:55 PM JUNIOR ACCOUNTANT Body Mass Index 26.09 05/20/2020 3:55 PM JUNIOR ACCOUNTANT Plan of Treatment Health Maintenance Due Date Last Done Comments COLOGUARD (AGES 45-75) - COL ON CA SCREENING 1968 COLON MONITORING 1968 COLONOSCOPY - COLON CA SCREENING 1968 CT COLONOGRAPHY - COLON CA SCREENING 1968 Colorectal Cancer Screening 1968 FIT - COLON CA SCREENING 1968 FLEX SIG - COLON CA SCREENING 1968 LIPID TESTING 1968 MAMMOGRAM 1968 HIV SCREENING 07/05/1983 HEPATITIS C SCREENING 06/30/1986 DTAP/TDAP/TD VACCINES (1 - Tdap) 07/05/1987 HEPATITIS B VACCINE (1 of 3 - 19+ 3-dose series) 07/05/1987 PNEUMOCOCCAL VACCINE 50+ (1 of 1 - PCV) 2018 ZOSTER VACCINE (1 of 2) 2018 SCREENING FOR DIABETES 05/20/2020 DEPRESSION SCREENING 04/07/2024 COVID-19 VACCINE (1 - 2023-2 5 season) 2024 INFLUENZA VACCINE (#1) 2024 HIB VACCINE Aged Out No longer eligi ble based on patient's age to complete this topic HPV VACCINE Aged Out No longer eligi ble based on patient's age to complete this topic MENINGOCOCCAL (Group B) VACC INE SHARED DECISION-MAKING Aged Out No longer eligibl e based on patient's age to complete this topic MENINGOCOCCAL GROUPS A/C/Y/W VACCINE Aged Out No longer eligible b ased on patient's age to complete this topic Insurance [facility] Care Teams Director Life Sales Relationship Specialty Start Date End Date Jose Alberto Lima MD [address] [place] [address] PCP - General Family Medicine 05/20/20
== END 2024-12-30 15:55 | disposition home or self-care (01) ==
LOC: ANHFOHIMG 15:56
PROVIDERS: PCP Family Medicine; Visit Provider Nurse Practitioner
DX: Z12.31 Encounter for screening mammogram for malignant neoplasm of breast (principal)
CPT/HCPCS: 77063; 77067